=== PATIENT | male | born 1940 | race Caucasian/White ===

== ENCOUNTER 2017-04-08 04:27 | Inpatient (IN) | payer MEDICARE, OTHER ==
[~2017-04-08] VITALS: Ht 180.3 cm; Wt 104.3 kg
[~2017-04-08 04:27] MED LIST: ATENOLOL25 MG PO; ATROVENT HFA12.9 GM INH; BENTYL10 MG PO; CITALOPRAM HBR20 MG PO; IMDUR30 MG PO; LIPITOR20 MG PO; LISINOPRIL40 MG PO; NIACIN500 M1 PO; NORVASC5 MG PO; OMEPRAZOLE20 MG PO; QNASL8.7 GM NS; TRAZODONE HCL100 MG PO; ZOFRAN ODT4 MG SL; ZOLPIDEM TARTRA10 MG PO
--- NOTE | 2017-04-08 08:20 | NUR ---
PT HERE FROM ED, ALERT AND ORIENTED X4, ABLE TO TRASFER SELF TO BED. PT DENIES PAIN, NAUSEA, AND SOB AT THIS TIME. PT ON 5L VIA OXYMASK.
--- NOTE | 2017-04-08 08:42 | NUR ---
IV SITE INTACT, PT DENIES PAIN WITH FLUSH, FLUSHES EASILY, NO SWELLING OR REDNESS NOTED.
--- NOTE | 2017-04-08 09:00 | NUR ---
PT SITTING UP AT SIDE OF THE BED EATING BREAKFAST. PT ALERT AND ORIENTED X4, DENIES PAIN, NAUSEA, AND SOB. PT WEARING 4L O2 VIA NASAL CANULA WHILE EATING, MAINTAINING SATS ABOVE 90%.
--- NOTE | 2017-04-08 10:12 | NUR ---
PT RESTING IN BED WITH EYES CLOSED, TV IS ON, CALL LIGHT WITHIN REACH. VITALS WNL AT THIS TIME.
--- NOTE | 2017-04-08 12:37 | NUR ---
IV SITE INTACT, FLUIDS INFUSING EASILY, PT DENIES PAIN AT SITE. PT STATES "I JUST DON'T FEEL GOOD". PT DENIES NAUSEA, PAIN, AND SOB. ABLE TO EAT 100% OF HIS LUNCH.
--- NOTE | 2017-04-08 12:42 | NUR ---
PT PLACED ON BIPAP. PT DENIES PAIN AT THIS TIME, HOWEVER STATES "I JUST DON'T FEEL GOOD". PT DENIES NAUSEA AND SOB AT THIS TIME.
--- NOTE | 2017-04-08 13:01 | NUR ---
CALLED TO DISCUSS PT LOW BP, LOW URINE OUTPUT, AND PT REPORTING "I JUST DON'T FEEL GOOD". 1L NS BOLUS ORDERED OVER 1 HOUR, CHANGE TO MAINTENENCE FLUID RATE TO 150 ML/HR. RESP THERAPY ALSO TALKING WITH TO DISCUSS BIPAP SUPPORT.
--- NOTE | 2017-04-08 13:04 | NUR ---
TALKED TO THE DOCTOR REGARDING DECREASING THE PRESSURE FROMN 16/8 TO TARGET LOWER TIDAL VOLUMES LONG VITALS REMAIN STABLE , DECREASED PRESSURE TO 15/8 AND TIDAL VOLUME 790
--- NOTE | 2017-04-08 13:30 | NUR ---
20 G IV STARTED IN RT HAND BY GT GRACE. PT ZULEYKA WELL.
--- NOTE | 2017-04-08 14:00 | NUR ---
ABX INFUSING INTO 20G IV IN RT HAND, NS BOLUS ALMOST FINISHED IN IV SITE IN LEFT AC, PT REPORTS NO PAIN AT EITHER SITE.
[2017-04-08] MEDS ORDERED: POTASSIUM CHLO10 ME1 PO (14:11)
--- NOTE | 2017-04-08 15:40 | NUR ---
JODY FROM PHARMACY IN DISCUSSING MEDICATIONS WITH PT AT THIS TIME.
--- NOTE | 2017-04-08 15:52 | HP ---
[facility] [address] [place], [place] [address] Signed DATE OF ADMISSION: 04/08/17 REFERRING PHYSICIAN: Dr. Tammy Aldridge, Emergency Room. PRIMARY CARE PHYSICIAN: Tara Rose, DO IDENTIFICATION The patient is a 76-year-old male with a history of COPD, who was been admitted from the emergency room. History is obtained from the patient. REASON FOR ADMISSION: Acute necrotizing pneumonia with hypoxemia. HISTORY OF PRESENT ILLNESS The patient is a 76-year-old male with a history of COPD, who was in his baseline state of health until yesterday when he began feeling more tired than normal. He continued to do work, but felt like he did not have any energy. There was no fever or chills at that time. At around 3 a.m., this morning, he woke up feeling terrible with fever, chills , and dyspnea. He treated himself with albuterol and other bronchodilators with some relief. However, he noted that his oxygen saturation at that time were ranging between 50% and 60%. He also was noted to have some hemoptysis at that time. Because he was feeling so poorly, he was brought to the emergency room. He is normally on home oxygen 2.5 to 3 L per day. He states that he has had no recent travel. There have been no known ill contacts. He has had no exposure to tuberculosis in the past. They have 2 dogs and 1 cat in the home. In the emergency room, the patient appeared moderately ill, dyspneic with oxygen saturations initially 40 to 50%. He was treated with bronchodilators, IV Solu-Medrol, IV Ceftriaxone and placed on BiPAP with some improvement in his respiratory status. His chest x-ray demonstrated extensive right pneumonia. Because of acute onset of his symptoms and the fact that he has hemoptysis, he was sent for a CT pulmonary angiogram. There is no evidence of pulmonary emboli, but the patient did have extensive right necrotizing pneumonia. Therefore, he was referred for admission. It should be noted the patient had a prior admission for similar symptoms to [facility] in August of 2015. He was admitted for 5 days there with a right-sided pneumonia, which looks very similar to his chest x-ray this time. There is no intervening x-rays to note this ever cleared. PAST MEDICAL HISTORY Significant for: Essential hypertension, controlled with atenolol, lisinopril, and amlodipine. Electronically Signed By: LUIS LEAL MD 04/08/17 1552 PATIENT NAME: MARI MARIE HISTORY AND PHYSICAL DATE OF : 44 PHYSICIAN: LUIS LEAL MD REPORT #: [id number] REPORT IS CONFIDENTIAL AND NOT TO BE RELEASED WITHOUT AUTHORIZATION [address] [address] Signed Chronic obstructive pulmonary disease, on beclomethasone and Atrovent with p.r.n. albuterol. The patient is followed by ham pumper at [facility], but he does not remember the ham pumper's name. Coronary artery disease, status post four-vessel CABG in 1989. Bilateral carotid artery stenosis, status post carotid endarterectomy in 2005. Pacemaker placement in 2006, presumably from bradycardia or sick sinus syndrome. CURRENT MEDICATIONS Include atenolol 50 mg every day, Niacin 1000 mg q. day, omeprazole 20 mg q. day, atorvastatin 20 mg q. day, Imdur 30 mg q. day, lisinopril 40 mg q. day, amlodipine 10 mg q. day, trazodone 150 mg p.o. q.h.s., Ambien 10 mg p.o. q.h.s . p.r.n., beclomethasone 8.7 gm inhaled b.i.d., Atrovent HFA 12.9 g inhaled q.4h. p.r.n. for wheezing, albuterol nebulizations 2.5 mg inhaled q.4h. p.r.n. for wheezing. ALLERGIES: No known drug allergies. FAMILY HISTORY: Reviewed and is noncontributory. SOCIAL HISTORY The patient is and lives in [facility]. He worked at [employer] and retired from there. 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 He has worked in the [employer] in the past. No other toxic exposures. He did smoke for 35 years, approximately 2 packs per day. He quit approximately 20 years ago. The patient states in the event of a cardiac arrest, he would not want CPR. He would entertain intubation mechanical ventilation for a short period of time if there was a chance for improvement. REVIEW OF SYSTEMS Significant for fever, chills, and dyspnea as mentioned in the HPI. There has been no chest pain, no edema, no orthopnea. He has had some posttussive emesis. There has been no diarrhea. Otherwise, a 14-point review of systems has been reviewed and is negative. PHYSICAL EXAMINATION VITAL SIGNS: Temperature 36.8, pulse 80, respirations 22, blood pressure 137/80, oxygen saturations 93% on a 5 L mask. GENERAL: He is awake, alert, in moderate respiratory distress. He is able to speak in almost full sentences. HEENT: Head is atraumatic. Eyes: Pupils equally round and reactive to light. No scleral icterus. No conjunctival injection. Nose is clear without rhinorrhea. Mouth is somewhat Electronically Signed By: LUIS LEAL MD 04/08/17 1552 PATIENT NAME: MARI MARIE HISTORY AND PHYSICAL DATE OF : 44 PHYSICIAN: LUIS LEAL MD REPORT #: [id number] REPORT IS CONFIDENTIAL AND NOT TO BE RELEASED WITHOUT AUTHORIZATION [facility] [address] [place], [place] [address] Signed dry without oral lesions. No pharyngeal erythema. NECK: No lymphadenopathy. No carotid bruits. No thyromegaly. No nuchal rigidity. LUNGS: Demonstrated decreased breath sounds throughout. There were wheezes and crackles throughout the right lung field. There is prolonged expiratory phase. HEART: Regular rate and rhythm. No murmur or gallops. No rubs. PMI was not displaced. ABDOMEN: Quiet bowel sounds, soft, somewhat obese, protuberant without masses or organomegaly. There is no tenderness to palpation. GENITOURINARY: Deferred. EXTREMITIES: Extremities were warm distally. Capillary refill time was approximately 2-3 seconds. Pulses are 1-2+/4, equal and symmetric. There is no cyanosis, clubbing or edema. There was mild bilateral calf tenderness with negative Andre sign. NEUROLOGIC: The patient is awake, alert, and oriented x3. Followed commands. Strength is 5+/5, equal and symmetric. There are no focal deficits. DIAGNOSTIC DATA CBC: White blood cell count was 16.4, hemoglobin 16.8, hematocrit 50, platelets 201,000. Differential, segs 81, lymphs 16, monos 2. Electrolytes: Sodium 138, potassium 3.9, chloride 100, CO2 29, BUN 27, creatinine 1.73. Random glucose 153. Baseline creatinine is unknown. Troponin was less than 0.01. Calcium 9.5. ALT 17, AST 20, alkaline phosphatase 80. Total bilirubin 0.5 . Protein 6.9, albumin 4.3. D-dimer was 1830. Arterial blood gas showed a pH of 7.43, pCO2 of 65, paO2 of 37, bicarbonate of 24 on 40% oxygen. Chest x-ray demonstrated diffuse hazy opacity in the right lung. ACT pulmonary angiogram showed no evidence of p ulmonary embolus. There was extensive destruction of the upper lobes of the lungs bilaterally consistent with COPD. There is diffuse hazy opacity in the right lung with a coarse reticular pattern consistent with pneumonia or atelectasis. IMPRESSION This is a 76-year-old male with, Chronic obstructive pulmonary disease, who has acute Community-acquired necrotizing pneumonia. The patient had abrupt onset of fever and shaking chills with hemoptysis consistent with necrotizing pneumonia. Since he has had a recent pneumonia without obvious improvement in the right lung, he is certainly at risk for unusual organisms. Therefore, he will be started on cefepime and azithromycin until his sputum culture is finalized. He has significant hypoxemia and will be placed on BiPAP intermittently today. He will be maintained on oxygen as needed, maintain his oxygen saturation at 88-92%. . He will receive chest physiotherapy and work towards early ambulation. There is no evidence of sepsis or systemic inflammatory response syndrome at this time. Chronic obstructive pulmonary disease with acute exacerbation. The patient has baseline severe chronic obstructive pulmonary disease, on 2.5 L of oxygen at home. He currently has increased dyspnea with sputum production. Therefore, he will be placed on routine Electronically Signed By: LUIS LEAL MD 04/08/17 1552 PATIENT NAME: MARI MARIE HISTORY AND PHYSICAL DATE OF : 44 PHYSICIAN: LUIS LEAL MD REPORT #: [id number] REPORT IS CONFIDENTIAL AND NOT TO BE RELEASED WITHOUT AUTHORIZATION [facility] [address] [place], [place] [address] Signed bronchodilators and IV Solu-Medrol 40 mg IV q.8h. He will be placed on BiPAP intermittently as needed for increased respiratory distress and at night. Chronic kidney disease, stage III. The patient will have his medication adjusted for his reduced glomerular filtration rate. He did receive a load of IV contrast for the CTPA, so we will follow his BUN and creatinine closely. He will be placed on IV fluids at 125 mL per hour in order to try to avoid any further kidney injury. Essential hypertension. His blood pressure appears stable at this time. He will be continued on atenolol, lisinopril, and amlodipine for now. History of coronary artery disease. The patient has not suffered myocardial infarction in the past and has not been having a ny recent chest pain. His EKG does not show any acute changes and his troponins were normal. He will be observed closely for any evidence of ongoing angina or cardiac ischemia. Chronic lung disease. The patient had very similar pneumonia in the late 2015. Unfortunately, there is no intervening chest x-ray to show whether this has cleared. The patient should have followup chest x-rays after discharge at this time to make sure the pneumonia clears. If he continues to have abnormal right lung chest x-ray, he should be evaluated by Pulmonology and considered for bronchoscopy. I spent greater than 80 minutes admitting this patient to the Intensive Care Unit exclusive of any procedures. Luis Leal MD MM/Lesliel /[id number] cc: Tara Rose, DO [address] [facility], [place] [address] Electronically Signed By: LUIS LEAL MD 04/08/17 1552 PATIENT NAME: MARI MARIE HISTORY AND PHYSICAL DATE OF : 44 PHYSICIAN: LUIS LEAL MD REPORT #: [id number] REPORT IS CONFIDENTIAL AND NOT TO BE RELEASED WITHOUT AUTHORIZATION
[2017-04-08] MEDS ORDERED: ADULT LOW DOSE81 MG PO (15:54)
[2017-04-08] MEDS ORDERED: PULMICORT0.5 MG/2 M INH (15:54)
[2017-04-08] MEDS ORDERED: FISH OIL 1,0001 EAC3 PO (15:55)
[2017-04-08] MEDS ORDERED: FUROSEMIDE40 MG PO (15:57)
--- NOTE | 2017-04-08 15:58 | NUR ---
MED REC COMPLETE
--- NOTE | 2017-04-08 16:15 | NUR ---
IV SITES INTACT, NO REDNESS OR SWELLING NOTED, PT DENIES PAIN AT INSIRTION SITE OR WITH INFUSION. PT AMBULATED TO TOILET, ABLE TO HAVE A BM AND VOIDED 125 ML INTO THE URINAL. PT THEN AMBULATED BACK TO BED, HAD A NEB TREATMENT, THEN AMBULATED TO THE COUCH. PT VISITING WITH HIS AT THIS TIME, DENIES PAIN, NAUSEA, AND SOB. VITALS WNL, PT ON 4L O2 VIA NASAL CANULA.
--- NOTE | 2017-04-08 19:40 | NUR ---
PT AWAKE IN BED WATCHING TV, REPORT RECEIVED FROM GIULIANO GRACE. PT DENIES NEEDS AT THIS TIME, PLAN OF CARE FOR THE NIGHT DISCUSSED WITH PT. RT IN TO DO NEB.
--- NOTE | 2017-04-08 20:45 | NUR ---
PT WATCHING TV IN BED, ASSESSMENT COMPLETED. LUNGS CLEAR BUT DIM. PT STATES HIS BREATHING IS NOT AT HIS BASELINE AT THIS TIME, WEARING NASAL CANNULA AT 4L.
--- NOTE | 2017-04-08 21:20 | NUR ---
DR FERRER CALLED AND UPDATED REGARDING URINE OUTPUT LOW, NO ORDERS AT THIS TIME, CONTINUE TO MONITOR. PT BLADDER SCAN SHOWED 271 THEN VOIDED 150ML DARK CONCENTRATED URINE.
--- NOTE | 2017-04-08 22:09 | NUR ---
PT GIVEN TYLENOL FOR BACK PAIN. READY TO TRY TO SLEEP NOW, BUT DOES NOT WANT TRAZADONE AND SONATA UNTIL 2244. REQUESTS OXYMASK DUE TO NASAL CANNULA DRYING OUT HIS NOSE.
--- NOTE | 2017-04-08 22:45 | NUR ---
PT WAITING TO SON TO ARRIVE, WANTS TO WAIT ON SLEEP MEDS.
--- NOTE | 2017-04-08 23:00 | NUR ---
STATES THAT HIS BACK PAIN IS GONE AFTER THE TYLENOL.
--- NOTE | 2017-04-08 23:15 | NUR ---
SON IN TO VISIT WITH PT
--- NOTE | 2017-04-09 00:58 | NUR ---
UP TO VOID AND LOOSE BOWEL MOVEMENT, BACK TO BED, NO COMPLAINTS.
--- NOTE | 2017-04-09 03:00 | NUR ---
PT SLEEPING, RESP EVEN AND UNLABORED, OCCASIONAL PRODUCTIVE COUGH WITH SOME BLOOD TINGED SPUTUM.
--- NOTE | 2017-04-09 05:13 | NUR ---
PT SLEEPING, RR 18, HR 61, SPO2 98%
--- NOTE | 2017-04-09 07:15 | NUR ---
PT HAD SOME TROUBLE SLEEPING LAST NIGHT, URINE OUTPUT PICKED UP AND BLOOD PRESSURES WERE A BIT LOW FOR AN HOUR OR SO THEN PICKED UP AND MAINTAINED A MAP OVER 65. HR 60'S TO 70'S, PACED WITH BBB. CONTINUES ON 4L/O2 PER NASAL CANNULA, OCCASIONALLY USES OXYMASK FOR COMFORT. MAINTAINS SPO2 IN MID TO HIGH NINETIES, STATES HIS BREATHING IS A BIT BETTER THIS MORNING BUT NOT YET AT HIS USUAL. HAS COUGHED UP SOME BLOODY SPUTUM LAST NIGHT BUT NONE THE SECOND HALF OF THIS SHIFT. REMAINS ALERT AND ORIENTED AND ACTIVE.
--- NOTE | 2017-04-09 07:50 | NUR ---
PT SITTING UP AT THE SIDE OF THE BED EATING BREAKFAST. PT DENIES PAIN, NAUSEA, AND SOB. IV SITES INTACT, FLUIDS INFUSING EASILY, PT DENIES PAIN AT SITES. PT ALERT AND ORIENTED X4, COOPERATIVE AND POLITE. PT STATES "I FEEL ALOT BETTER THAN YESTERDAY". VITAL SIGNS WNL.
--- NOTE | 2017-04-09 08:35 | NUR ---
TURNED PT O2 DOWN TO 3L, PT SATS MAINTAINING ABOVE 90%
--- NOTE | 2017-04-09 10:07 | NUR ---
PT RESTING IN BED AT THIS TIME WITH THE TV ON. O2 SAT IS 95% ON 3L O2.
--- NOTE | 2017-04-09 11:17 | NUR ---
PT AWAKE AND ALERT X4, PT DENIES PAIN, NAUSEA, AND SOB AT THIS TIME. LAYING IN BED WATCHING TV. PT C/O HICCUPS, GIVEN 1 TSP MUSTARD TO EAT, HICCUPS RESOLVED SHORTLY AFTER PT ATE MUSTARD.
--- NOTE | 2017-04-09 11:44 | NUR ---
PT AMBULATED TO TOILET WITH STAND BY ASSIST FOR MANAGEMENT OF CABLES. PT ABLE TO VOID INTO URINAL AND HAVE BM. PT BACK TO CHAIR, SOME SOB WITH EXERTION, O2 TURNED UP TO 4L FOR 5 MINUTE RECOVERY PERIOD, THEN O2 BACK TO 2.5 L. LINENS CHANGED.
--- NOTE | 2017-04-09 13:15 | EKG ---
[facility] [address] [facility] [place] [address] Signed Normal sinus rhythm with sinus arrhythmia Right bundle branch block T wave abnormality, consider inferior ischemia Abnormal ECG No previous ECGs available Confirmed by PARKER FERRER MD ([id number]) on 04/09/2017 1:15:25 PM Electronically Signed By: PARKER FERRER MD 04/09/17 1315 PATIENT NAME: MARI MARIE Electrocardiogram DATE OF : 44 PHYSICIAN: PARKER FERRER MD REPORT #: [id number] REPORT IS CONFIDENTIAL AND NOT TO BE RELEASED WITHOUT AUTHORIZATION
--- NOTE | 2017-04-09 19:13 | EKG ---
[facility] [address] [facility] [place] [address] Signed Normal sinus rhythm Right bundle branch block T wave abnormality, consider inferior ischemia Abnormal ECG When compared with ECG of 08-APR-2017 04:49, (Unconfirmed) Nonspecific T wave abnormality now evident in Lateral leads QT has lengthened Confirmed by PARKER FERRER MD ([id number]) on 04/09/2017 7:13:18 PM Electronically Signed By: PARKER FERRER MD 04/09/17 1913 PATIENT NAME: MARI MARIE Electrocardiogram DATE OF : 44 PHYSICIAN: PARKER FERRER MD REPORT #: [id number] REPORT IS CONFIDENTIAL AND NOT TO BE RELEASED WITHOUT AUTHORIZATION
--- NOTE | 2017-04-09 20:04 | NUR ---
FAMILY MEMBER VISITING WITH PATIENT UNTIL 1940, PT IS A/O, NO COMPLAINTS OF PAIN, RT ASSESSED PT.
--- NOTE | 2017-04-10 00:25 | NUR ---
PT IS SLEEPING AFTER HS SLEEP MEDICATION, APPEARS COMFORTABLE, USES CALL LIGHT, TELEMETRY, VS WNL.
--- NOTE | 2017-04-10 00:59 | NUR ---
PT APPEARED TO BE SLEEPING FOR 1.5 HRS, OCCASIONAL COUGH. BP WNL, PT VERBALIZED HE HASN'T SLEPT AT ALL. PT RECEIVED TRAZADONE AND SONATA HS, TAKES AMBIEN AT HOME. PT DOES NOT WANT THE PHYSICIAN CONTACTED FOR AN ORDER FOR HIS USUAL MEDICATION AT THIS TIME. VOIDED 300 ML MARLEN/CLEAR URINE HS, NS AT 125 ML/HR CONTINUOUS INFUSION. LUNGS COARSE UPPER LOBES, DIMINISHED BASES. CONGESTED. SPUTUM SENT TO THE LAB. PT COUGHED APPROXIMATELY 2 MUCOUS DARK RED STAINED 3 ML EACH SPUTUM, PRODUCTIVE. UNREMARKABLE, AFEBRILE.
--- NOTE | 2017-04-10 02:01 | NUR ---
PT IS RESTING COMFORTABLY, ATRIAL PACED HR 64. URINAL AT BEDSIDE, CONSOLIDATING INTERVENTIONS.
--- NOTE | 2017-04-10 04:05 | NUR ---
PT SLEPT FROM APPROXIMATELY 0115 TO 0330.
--- NOTE | 2017-04-10 05:32 | NUR ---
ASA AND LOVENOX VTE PROPHYLAXIS.
--- NOTE | 2017-04-10 06:52 | NUR ---
LOZENGE FOR THROAT DRYNESS, ICE WATER PROVIDED, PT ORDERED BREAKFAST BY TELEPHONE, AWAKE, DID NOT SLEEP MUCH, IN RECLINER.
--- NOTE | 2017-04-10 08:35 | NUR ---
IV SITES INTACT, NO REDNESS OR SWELLING NOTED, PT DENIES PAIN AT EITHER SITE, FLUIDS AND FLUSHES INFUSE EASILY. PT ALERT AND ORIENTED X4 SITTING UP IN THE CHAIR. PT DENIES PAIN AND NAUSEA. PT ATE 100% OF HIS BREAKFAST. PT REPORTS "I DIDN'T SLEEP LAST NIGHT". PT COOPERATIVE AND APPRORIATE. PT REPORTS SOB WITH ACTIVITY "I'M SUPRISED AT HOW OUT OF BREATH I AM JUST FROM PUTTING MY SOCKS ON". PT DENIES SOB WHILE SITTING OR LAYING DOWN.
--- NOTE | 2017-04-10 10:16 | NUR ---
PT RECLINING IN CHAIR WITH EYES CLOSED, TV IS ON. CALL LIGHT WITHIN REACH. PT APPEARS COMFORTABLE, RESP EVEN AND UNLABORED.
--- NOTE | 2017-04-10 11:46 | NUR ---
PT SITTING UP IN CHAIR, ALERT AND ORIENTED X4, ORDERING LUNCH INDEPENDENTLY. PT HAS HAD A PRODUCTIVE COUGH AND BEEN ABLE TO EXPECTORATE SMALL AMOUNTS OF SPUTUM, OCCASIONALLY RED/BROWN COLOR, OTHERWISE CLEAR. PT DENIES PAIN, NAUSEA, AND SOB AT THIS TIME.
--- NOTE | 2017-04-10 12:55 | NUR ---
IV SITES INTACT, NO REDNESS OR SWELLING NOTED, FLUSHE EASILY, PT DENIES PAIN AT EITHER SITE. PT SITTING UP IN CHAIR, ALERT AND ORIENTED X4. PT DENIES PAIN, NAUSEA AND SOB. CALL LIGHT WITHIN REACH. SPOUSE AT BEDSIDE. PT HAS LUNCH TRAY.
--- NOTE | 2017-04-10 13:30 | NUR ---
FULL REPORT GIVEN TO ROLAN GRACE, PT TO TRANSFER TO ROOM 114. PT IS AWARE OF THE PLAN TO MOVE.
--- NOTE | 2017-04-10 15:15 | NUR ---
PT MOVED TO ROOM 114, ALL PERSONAL BELONGINGS MOVED WITH PT INCLUDING HIS HOME 02 TANK.
--- NOTE | 2017-04-10 15:37 | NUR ---
PT MOVED TO THE FLOOR VIA LESLY NOBLES AND LESLY GONGORA. ALL PT BELONGINGS WERE MOVED WITH PT. PT'S TOWER MEDS PLACED IN MED/SURG PYXIS. LAB CALLED, NEEDS A SPUTUM SAMPLE. PT ADVISED AND SIGN PLACED IN ROOM. PT ASSESSMENT COMPLETED.
--- NOTE | 2017-04-10 18:07 | NUR ---
PT MOVED TO MED/SURG THIS SHIFT. PT ON 2-4L O2 CHRONICLY. IV CEPHAPIME AND PO ZYTHROMYCIN. IV ACCESS X2, RIGHT HAND AND LEFT AC, SALINE LOCK EXCEPT ANTIBIOTICS. PO STEROIDS. URINE OUTPUT QS. A & 0 X4. HAS OWN AMBIEN IN PYXIS. REPORTS SOB WITH ACTIVITY. HAS PACER. SBA/INDEPENDENT IN ROOM. UPPER AND LOWER DENTURES.
--- NOTE | 2017-04-10 20:12 | NUR ---
PT ASSESSMENT COMPLETE. PT SITTING IN CHAIR IN ROOM WATCHING TV, IN GOOD SPIRITS THIS EVENING. PT ALERT AND ORIENTED. PT ON 3 LPM O2 VIA NASAL CANNULA, DENIES ANY SOB AT THIS TIME. IV ABX INITIATED, INFUSING WITHOUT DIFFICULTY. PT ON TELEMETRY, SINUS RHYTHM, HR 85. CALL LIGHT WITHIN REACH. PT DENIES ANY FURTHER NEEDS AT THIS TIME.
--- NOTE | 2017-04-10 22:40 | NUR ---
PT READY FOR BED, TRAZADONE AND AMBIEN GIVEN PER PT REQUEST. IV ABX INFUSING WITHOUT DIFFICULTY. CALL LIGHT WITHIN REACH. PT DENIES ANY FURTHER NEEDS AT THIS TIME.
--- NOTE | 2017-04-10 23:55 | NUR ---
PT SLEEPING, RR EVEN AND UNLABORED. PT APPEARS COMFORTABLE AT THIS TIME. IV ABX INFUSING WITHOUT DIFFICULTY. PT ON TELEMETRY, SINUS RHYTHM, PACED, HR 70. PT ON 3 LPM O2 VIA NASAL CANNULA. CALL LIGHT WITHIN REACH.
--- NOTE | 2017-04-11 04:29 | NUR ---
PT SLEEPING, RR EVEN AND UNLABORED. PT APPEARS COMFORTABLE AT THIS TIME. IV ABX INFUSING WITHOUT DIFFICULTY. PT ON TELEMETRY, SINUS RHYTHM, PACED, HR 66. PT ON 3 LPM O2 VIA NASAL CANNULA. CALL LIGHT WITHIN REACH.
--- NOTE | 2017-04-11 09:00 | NUR ---
PT UP TO RECLINER THIS MORNING. ATE 100% OF BREAKFAST. TOOK AM PILLS WELL. NO COMPLAINTS AT THIS TIME. 3L O2 VIA NC IN PLACE.
--- NOTE | 2017-04-11 14:53 | NUR ---
PT SITTING IN CHAIR-WATCHING TV. HE IS ALERT, ORIENTED AND SUPPORTED BY HIS EWELINA. HE SAID HE WILL HAVE TO SLOW DOWN, HE IS LEARNING HIS LESSONS. HE SEEMS TO ENJOY HELPING OTHERS, BUT JUST NOT ENOUGH TO CONTRIBUTE TO HIS ILL HEALTH. GOOD VISIT, LOTS IN COMMON WITH EACH OTHER. HE FEELS MUCH MORE AT EASE STAYING ONE MORE NIGHT. EXTENDED A BLESSING, WILL FOLLOW NEEDED
--- NOTE | 2017-04-11 17:57 | NUR ---
3L 02 VIA OH CHRONIC. INDEPENDENT AMBULATION. SHOWERS BID. AMBIEN IN KITS LIST. LEVAQUIN PO TO START AT 0600. CARDIAC DIET.
--- NOTE | 2017-04-11 21:48 | NUR ---
PT JUST FINISHED WITH SHOWER. PT ASSESSMENT COMPLETE. PT DENIES ANY PAIN. PT STATES BREATHING "MUCH BETTER TODAY", DENIES ANY SOB AT THIS TIME. PT ON 3 LPM O2 VIA NASAL CANNULA. PT ON TELEMETRY, SINUS RHYTHM, HR 66. HS MEDS GIVEN, PT REQUESTING TO RECEIVE TRAZADONE AND AMBIEN WHEN HE IS READY FOR BED VS SCHEDULED TIME. IV SALINE LOCKED, PATENT AND INTACT. CALL LIGHT WITHIN REACH. PT DENIES ANY FURTHER NEEDS AT THIS TIME.
--- NOTE | 2017-04-12 00:05 | NUR ---
PT SLEEPING, RR EVEN AND UNLABORED. PT APPEARS COMFORTABLE AT THIS TIME. PT ON TELEMETRY, SINUS RHYTHM, PACED, HR 75. PT ON 3 LPM O2 VIA NASAL CANNULA. CALL LIGHT WITHIN REACH.
--- NOTE | 2017-04-12 02:45 | NUR ---
PT AWAKE SITTING IN CHAIR WATCHING TV. PT IN GOOD SPIRITS THIS AM, STATES HE SLEPT WELL. PT ON 3 LPM O2, DENIES ANY SOB AT THIS TIME. COFFEE GIVEN PER PT REQUEST. PT AMBULATING IN ROOM INDEPENDENTLY, STEADY ON FEET. CALL LIGHT WITHIN REACH. PT DENIES ANY FURTHER NEEDS AT THIS TIME.
--- NOTE | 2017-04-12 05:04 | NUR ---
PT HAD A GOOD NIGHT. SLEPT WELL. PT ON 3 LPM O2 VIA NASAL CANNULA-CHRONIC. PT STARTED ON PO ABX THIS AM. PT AMBULATES INDEPENDENTLY. PT SHOWERED THIS SHIFT. PLAN IS FOR PT TO POSSIBLY DC HOME TODAY.
--- NOTE | 2017-04-12 07:23 | NUR ---
REPORT RECEIVED FROM PIEDAD GRACE. PT UP EARLY THIS MORNING ANXIOUS TO GO HOME. EDUCATED BY ART THERAPY SPECIALIST RN THAT HE MAY NOT GO HOME UNTIL 1400. PT UNDERSTOOD EDUCATION. TELE [address] HR 68.
--- NOTE | 2017-04-12 08:18 | NUR ---
PT O2 SATS 85-88% DURING BREATHING TREATMENT. RESPIRATORY THERAPY GIVING EDUCATION ON O2 TANK OPTIONS.
[2017-04-12] MEDS ORDERED: LEVOFLOXACIN500 MG PO (10:12)
--- NOTE | 2017-04-12 10:12 | NUR ---
PT IS SITTING UP IN CHAIR CALL LIGHT IN REACH. PT DID NOT WANT TO SHOWER B/C HE IS BEING DISCHARGED TO HOME. PT DID NOT NEED ANYTHING ELSE AT THE MOMENT
[2017-04-12] MEDS ORDERED: PREDNISONE20 MG PO (10:43)
--- NOTE | 2017-04-14 17:14 | EKG ---
[facility] [address] [facility] [place] [address] Signed Normal sinus rhythm Right bundle branch block Left posterior fascicular block Bifascicular block T wave abnormality, consider inferior ischemia Abnormal ECG When compared with ECG of 09-APR-2017 08:00, Nonspecific T wave abnormality no longer evident in Lateral leads Confirmed by MARIA ANTONIA RYAN MD ([id number]) on 04/14/2017 5:13:53 PM Electronically Signed By: MARIA ANTONIA RYAN MD 04/14/17 1714 PATIENT NAME: MARI MARIE Electrocardiogram DATE OF : 44 PHYSICIAN: MARIA ANTONIA RYAN MD REPORT #: [id number] REPORT IS CONFIDENTIAL AND NOT TO BE RELEASED WITHOUT AUTHORIZATION
== END 2017-04-12 11:15 | disposition home or self-care (01) | DRG 190 ==
LOC: ED 04:27 → MS 07:52 → CCU 07:52 → MS 04-10 15:26
PROVIDERS: ADMIT Pediatrics Pediatric Critical Care Medicine
PROC: 5A09357 Assistance with Respiratory Ventilation, Less than 24 Consecutive Hours, Continuous Positive Airway Pressure (ICD-10-PCS; principal; 2017-04-08)
DX: J44.1 Chronic obstructive pulmonary disease with (acute) exacerbation (principal); J85.0 Gangrene and necrosis of lung; J44.0 Chronic obstructive pulmonary disease with (acute) lower respiratory infection; I12.9 Hypertensive chronic kidney disease with stage 1 through stage 4 chronic kidney disease, or unspecified chronic kidney disease; N18.3 Chronic kidney disease, stage 3 (moderate); I25.10 Atherosclerotic heart disease of native coronary artery without angina pectoris; Z95.0 Presence of cardiac pacemaker; Z87.891 Personal history of nicotine dependence; R09.02 Hypoxemia
CPT/HCPCS: 36415; 36600; 71010; 71020; 71260; 80048; 80053; 82803; 83605; 83735; 83880; 84484; 85025; 85379; 87040; 87070; 87106; 87147; 87205; 93005; 93010; 94640; 94644; 94660; 94668; 94760; J0456; J0692; J0696; J1650; J2920; J2930; J3480; J7030; J7120; J7512; Q9967

== ENCOUNTER 2017-05-11 05:48 | Emergency (ER) | payer MEDICARE, OTHER ==
[~2017-05-11] VITALS: Ht 180.3 cm; Wt 104.3 kg
[~2017-05-11 05:48] MED LIST changes: +ADULT LOW DOSE81 MG PO; +FISH OIL 1,0001 EAC3 PO; +FUROSEMIDE40 MG PO; +LEVOFLOXACIN500 MG PO; +POTASSIUM CHLO10 ME1 PO; +PREDNISONE20 MG PO; +PULMICORT0.5 MG/2 M INH
--- NOTE | 2017-05-11 07:15 | EKG ---
[facility] [address] [facility] [place] [address] Signed Suspect arm lead reversal, interpretation assumes no reversal Sinus tachycardia Right bundle branch block T wave abnormality, consider inferior ischemia Abnormal ECG When compared with ECG of 12-APR-2017 10:40, Vent. rate has increased BY 36 BPM T wave inversion more evident in Inferior leads T wave inversion now evident in Anterior leads Confirmed by PARKER FERRER MD ([id number]) on 05/11/2017 7:15:26 AM Electronically Signed By: PARKER FERRER MD 05/11/17 0715 PATIENT NAME: MARI MARIE Electrocardiogram DATE OF : 44 PHYSICIAN: PARKER FERRER MD REPORT #: [id number] REPORT IS CONFIDENTIAL AND NOT TO BE RELEASED WITHOUT AUTHORIZATION
== END 2017-05-11 08:45 | disposition short-term general hospital (02) ==
LOC: ED 05:48
DX: J44.0 Chronic obstructive pulmonary disease with (acute) lower respiratory infection (principal); J18.9 Pneumonia, unspecified organism; I10 Essential (primary) hypertension; K21.9 Gastro-esophageal reflux disease without esophagitis; I51.9 Heart disease, unspecified; Z87.891 Personal history of nicotine dependence; Z95.0 Presence of cardiac pacemaker; Z95.5 Presence of coronary angioplasty implant and graft; Z79.899 Other long term (current) drug therapy; Z79.52 Long term (current) use of systemic steroids; Z79.82 Long term (current) use of aspirin
CPT/HCPCS: 71010; 80053; 82803; 83605; 83880; 84484; 85025; 87040; 93005; 93010; 94640; 94660; 96374; 96375; 99291; J1956; J2270

== ENCOUNTER 2017-11-01 05:44 | Inpatient (IN) | payer MEDICARE, OTHER ==
[~2017-11-01] VITALS: Ht 180.3 cm; Wt 176.3 kg
[~2017-11-01 05:44] MED LIST changes: -IMDUR30 MG PO; +ISOSORBIDE MONO30 MG PO
[2017-11-01] MEDS ORDERED: WARFARIN SODIUM5 MG PO (06:12)
--- NOTE | 2017-11-01 10:00 | NUR ---
PATIENT ARRIVED TO MED SURG. PATIENT IS ON BASELINE 2L OF O2. MAG RIDER INFUSING.
--- NOTE | 2017-11-01 10:54 | NUR ---
PT TRANFERED TO MED/SURG FROM ER. ASSESSMENT DONE. VITALS TAKEN. PT RESPONDING APPROPRIATLY TO QUESTIONS. PT DENIES PAIN. MEDICATIONS GIVEN ORDERED. PT RESTING IN BED. 2L O2 RUNNING PER BASELINE. PT STATES NO REQUESTS OR COMPLAINTS AT THIS TIME. BED RAILS UP. CALL LIGHT WITHIN REACH.
[2017-11-01] MEDS ORDERED: MAG-OXIDE400 MG PO (11:18)
[2017-11-01] MEDS ORDERED: METOPROLOL SUC100 MG PO (11:20)
--- NOTE | 2017-11-01 11:25 | NUR ---
MED REC COMPLETE WITH [facility] MED LIST AND PATIENT INTERVIEW. PATIENT DOES NOT WANT TO CONTINUE HAVING BLOOD DRAWS FOR WARFARIN AND HAS BEEN REFUSING THEM.
--- NOTE | 2017-11-01 13:00 | NUR ---
PT RESTING IN BED EYES CLOSED RR EVEN 18 BPM NO DISTRESS NOTED. PT BODY POSITION RELAXED. PT APPEARS TO BE SLEEPING.
--- NOTE | 2017-11-01 13:22 | EKG ---
[facility] [address] [facility] [place] [address] Signed Sinus rhythm with sinus arrhythmia with frequent ventricular-paced complexes Right bundle branch block T wave abnormality, consider inferior ischemia Abnormal ECG When compared with ECG of 11-MAY-2017 06:15, Electronic ventricular pacemaker has replaced Sinus rhythm Confirmed by MARIA ANTONIA RYAN MD ([id number]) on 11/01/2017 1:22:41 PM Electronically Signed By: MARIA ANTONIA RYAN MD 11/01/17 1322 PATIENT NAME: MARI MARIE Electrocardiogram DATE OF : 44 PHYSICIAN: MARIA ANTONIA RYAN MD REPORT #: [id number] REPORT IS CONFIDENTIAL AND NOT TO BE RELEASED WITHOUT AUTHORIZATION
--- NOTE | 2017-11-01 14:15 | NUR ---
PATIENT RESTING IN BED READING NEWS PAPER. VISITOR IN ROOM. PATIENT'S Sp02 AT 88-89% AT 2L NC. PATIENT STATES THAT HE USES 2.5 LITERS OF OXYGEN AT HOME. THIS MULTIMEDIA JOURNALIST BUMPS THE PATIENTS OXYGEN TO 2.5 PATIENT'S Sp02 UP TO 92% NC. PATIENT STATES THAT HE DOES NOT HAVE TO PEE AT THIS TIME BUT WILL TRY SOON. CALL BUTTON IN REACH. FRESH ICE WATER GIVEN. NO OTHER NEEDS AT THIS TIME. RN NOTIFIED.
--- NOTE | 2017-11-01 14:19 | NUR ---
PT ASLEEP, HIS SITTING QUIETLY IN RM. VISITED WITH HER, SHE MENTIONED THAT HE NEVER SLEEPS VERY GOOD. SHE IS PLANNING ON SLIPPING HM TO TAKE A NAP HERSELF. WILL FOLLOW NEEDED
--- NOTE | 2017-11-01 15:30 | NUR ---
AFTERNOON ASSESSMENT DUE. PT RESTING IN BED WATCHING TV. PT DENIES PAIN. PT COUGHING OCCATIONALLY. O2 2.5L NC RUNNING. ASSESSMENT DONE. MEDICATION GIVEN (SEE MAR). BED RAILS UP. CALL LIGHT WITHIN REACH. PT STATES NO REQUESTS OR COMPLAINTS AT THIS TIME.
--- NOTE | 2017-11-01 16:39 | NUR ---
REPORTED TO , PT HAS CONCERNS ABOUT SLEEPING TONIGHT IF HE DOES NOT HAVE HIS USUAL NIGHT MEDICATIONS, TRAZADONE AND AMBIEN. SAID HE WOULD RESUME HIS HS MEDICATIONS.
--- NOTE | 2017-11-01 17:41 | NUR ---
MEDICATION DUE. PT WATCHING TV AND FINISHED WITH DINNER. PT STATES "THAT DINNER WAS SO SMALL. I'M STILL HUNGRY." 2ND DINNER ORDER CALLED TO DIETARY. WATER REFILLED. MEDICATION GIVEN ORDERED (SEE MAR). PT CONTINUES WATCHING TV. WITH NO ADDITIONAL REQUESTS OR COMPLAINTS AT THIS TIME. CALL LIGHT WITHIN REACH. BED RAILS UP.
--- NOTE | 2017-11-01 18:03 | NUR ---
PT ADMITED TODAY FOR PNEUMONIA. STAND BY ASSIST. CARDIAC DIET. MAG RIDER GIVEN TODAY FOR MG+=1.5. IV ABX PLANNED FOR TOMORROW. PT ON 2.5L O2 PER HOME O2 USE. FEBRILE IN ED. NO FEVER TODAY ON MED/SURG. USING CALL LIGHT APPROPRITALY.
--- NOTE | 2017-11-01 18:23 | NUR ---
PATIENT RESTING IN BED LAYING ON HIS SIDE WITH HIS EYES CLOSED. PATIENT ASKED THIS ENGINEER SPECIALIST IF HE CAN GET UP ON HIS OWN TO GO TO THE BATHROOM. THIS ENGINEER SPECIALIST LET PATIENT KNOW THAT HE NEEDS TO CALL WHEN HE WANTS TO GET UP. THIS ENGINEER SPECIALIST ASKED THE PATIENT IF HE NEEDS TO USE THE BATHROOM NOW. PATIENT SAID NO. WARM BLANKET GIVEN TO PATIENT. BED ALARM ON. NO OTHER NEEDS AT THIS TIME.
--- NOTE | 2017-11-01 18:40 | NUR ---
THIS RN NOTED THAT PT HAS HAD ONLY 300ML OF URINE OUTPUT TODAY. MD CONTACTED. STATES TO BLADDER SCAN PT AND THEN DO A SET OF ORTHOSTATIC VITAL SIGNS. ORDERS ENTERED.
--- NOTE | 2017-11-01 18:52 | NUR ---
BLADDER SCAN AND ORTHOSTATIC VITAL SIGNS TAKEN PER MD ORDER. BLADDER SCAN FINDS 199ML. MD NOTIFIED. PT VISITING WITH FAMILY AT BEDSIDE. 2L O2 NC ON. PT DENIES DIZZINESS OR LIGHTHEADEDNESS.
--- NOTE | 2017-11-01 19:04 | NUR ---
MD ORDERS FLUID BOLUS TO BE FOLLOWED BY MAINTENCE FLUIDS AT 75ML/HR. FLUID BOLUS STARTED WITH MAINTENCE FLUIDS TO FOLLOW. PT VISITING WITH FAMILY. NO REQUESTS OR COMPLAINTS AT THIS TIME. CALL LIGHT WITHIN REACH.
--- NOTE | 2017-11-01 19:25 | NUR ---
IN ROOM FOR REPORT, PT IS AWAKE SITTING AT EDGE OF BED VISITING WITH FAMILY IN ROOM. PT DENIES NEEDS AT THIS TIME. CALL LIGHT IS WITHIN REACH.
--- NOTE | 2017-11-01 21:17 | NUR ---
PT IS AWAKE IN BED WITH VISIOR IN ROOM, PT IS REQUESTING TAKING AMBIEN AROUND 11PM. HE VOIDED [address] RYAN IS AWARE. HE SAID TO CONTINUE IV FLUIDS TONIGHT.
--- NOTE | 2017-11-01 23:07 | NUR ---
PT WAS READY FOR AMBIEN, NEW WATER AT BEDSIDE AND PT IS READY FOR BED, CALL LIGHT IS WITHIN REACH.
--- NOTE | 2017-11-02 00:09 | NUR ---
HELPED PT SIT AT EDGE OF BED TO USE URINAL. PT DENIES FURTHER NEEDS.
--- NOTE | 2017-11-02 06:03 | NUR ---
[facility], SEE PAPER CHART FOR RECORDS.
--- NOTE | 2017-11-02 08:20 | NUR ---
PATIENT SITTING AT BEDSIDE FINISHING BREAKFAST. HANDS AND FACE WASHED. PATIENT WOULD LIKE TO SHOWER. CALL BUTTON IN REACH NO OTHER NEEDS AT THIS TIME.
--- NOTE | 2017-11-02 08:55 | NUR ---
PATIENT REQUESTED TO TAKE A SHOWER BUT FELL ASLEEP IN BED SO WHEN PATIENT WAKES WILL SHOWER HIM, IV ABX HUNG AND RUNNING. PO MEDICATION GIVEN AND ASSESSMENT DONE. PATIENT IS ON OXYGEN AT 2.5 L PER NC WHICH IS CHRONIC FOR HIM.
--- NOTE | 2017-11-02 10:19 | NUR ---
PATIENT RESTING IN BED. TECHNICIAN ASSISTANT IN ROOM TO VISIT. CALL BUTTON IN REACH. NO OTHER NEEDS AT THIS TIME.
--- NOTE | 2017-11-02 10:20 | NUR ---
PATIENT RESTING ON HIS RIGHT SIDE RESPIRATIONS EVEN UNLABORED.
--- NOTE | 2017-11-02 11:21 | NUR ---
PT UP IN BATHROOM. PT SHOWERING AND SHAVING HIMSELF. BED LINEN CHANGED.
--- NOTE | 2017-11-02 13:28 | NUR ---
PT ALERT, ORIENTED AND HAS COME TO THE REALIZATION THAT HE NO LONGER CAN BURN OFF THE WEEDS ON HIS PLACE. EVERYTIME HE DOES HE ENDS UP AT [facility]. A PART OF HIS LIFE HE MUST LET GO OF. GOOD CONVERSATION, EXTENDED A BLESSING AND PT INVITED ME BACK. WILL FOLLOW NEEDED
--- NOTE | 2017-11-02 13:39 | NUR ---
PATIENT UP AND AMBULATING WITH HIS IN THE HALLWAY. HE IS USING HIS PORTABLE CONCENTRATOR FROM HOME AND WALKING INDEPENDENTLY. HE IS STEADY ON HIS FEET AND DENIES ANY PAIN OR NEEDS AT THIS TIME.
--- NOTE | 2017-11-02 15:13 | NUR ---
CALLED TO REPORT THAT PT FELT THE HS MEDICATION TRAZADONE AND AMBIEN THAT WAS DISPENSED LAST HS WAS NOT EFFECTIVE HIS HOME MEDICATION. GAVE OK FOR HOME MEDICATIONS TO BE DISPENSED AT HIS NORMAL HOME DOSE.
--- NOTE | 2017-11-02 15:46 | NUR ---
PATIENT RESTING ON HIS RIGHT SIDE, HOME MEDICATIONS GIVEN TO CATRINA IN PHARMACY TO BE VERIFIED.
--- NOTE | 2017-11-02 17:32 | NUR ---
PATIENT REMAINS ON OXYGEN AT 2.5L PER NC WHICH IS HIS HOME DOSE. HE IS TAKING ALL HIS HOME MEDICATIONS AND TOLERATED AMBULATING IN THE HALLWAY TODAY WITH HIS HOME CONCENTRATOR. PATIENT IS STEADY ON HIS FEET WITHOUT ANY ASSISTANCE. HE IS SALINE LOCKED AND HAS SLEPT MOST OF THE DAY TODAY. PATIENT IS ALERT AND ORIENTED.
--- NOTE | 2017-11-02 18:15 | NUR ---
PATIENT RESTING IN BED WATCHING TV. FRESH ICE WATER GIVEN. NO OTHER NEEDS AT THIS TIME.
--- NOTE | 2017-11-02 20:24 | NUR ---
O2 3L N/C in place, no sob stated, watching tv. Coop with assessment. L pacer in place, Irregular hear rate. 1+ edema left foot up to mid calf, and i+ r up to ankles, non pitting, leg elevated, 2 iv s/s in place, coop,
--- NOTE | 2017-11-02 21:00 | NUR ---
trazadone 200mg and ambien 10mg po given per insomnia
--- NOTE | 2017-11-02 21:33 | NUR ---
ROUNDED CHARGE. VITALS TAKEN AND RECORDED. PATIENT IS RESTING IN BED WATCHING TV. PATIENT HAS COMPANY IN THE ROOM. PATIENT DENIES ANY NEEDS CALL LIGHT IN REACH.
[2017-11-02] MEDS ORDERED: CEFPODOXIME PR200 MG PO (22:08)
--- NOTE | 2017-11-03 02:25 | NUR ---
eyes closed, has slept only 1 1/2 hr. CUrrenlty resting, eyes closed, no resp distress, O2 in place 3L NC
--- NOTE | 2017-11-03 05:46 | NUR ---
Pt currently resting, eyes closed. O2 3L NC. no c/o sob when getting up to brp. Tolerating diet well. Was medicatd with scheduled Ambien 10 and Trazadone 200mg po per insomnia. Pt stated that he has not slept much this shift. No c/o ches pain. Continues to have moist, ocassional productive cough.
--- NOTE | 2017-11-03 12:12 | NUR ---
PATIENT SITTING UP AT EDGE OF BED, VS STABLE. LUNG SOUNDS COURSE THROUGHOUT AND DIMINISHED IN BASES. PATIENT AAOX3. 94% NC 2.5 L. IV ANTIBIOTICS INFUSED, REMOVED IV CATHETERS, CATH INTACT. NO COMPLAINTS PAIN. DISCUSSED IV ANTIBIOTICS SENT TO [facility], DISCUSSED SYMPTOMS. PATIENT VERBALIZED UNDERSTANDING. PLAN FOR PATIENT TO FOLLOW UP WITH PCP AND HAVE MRI DONE IF PATIENT CONTINUES TO HAVE ISSUES WITH RECURRENT PNEAMONIA OR WORSENING SYMPTOMS. PATIENT VERBALIZED UNDERSTANDING.
--- NOTE | 2017-11-03 12:33 | NUR ---
PT DRESSED, RESTING ON BED, WAITING FOR DC. PT STATED HIS SHOULD BE IN SOON. STATED HE NEEDS STO HAVE A TALK WITH HIS SONS ABOUT HOW HE WILL NEED THEIR HELP FROM TIME TO TIME. HE SAID I JUST CAN'T KEEP HAVING TO COME IN FOR THIS. VERY PLEASED WITH CARE FROM STAFF. CAME IN, EXTENDED A BLESSING, PT THANKED ME.
== END 2017-11-03 11:08 | disposition home or self-care (01) | DRG 194 ==
LOC: ED 05:44 → MS 09:16
PROVIDERS: ADMIT Internal Medicine
DX: J18.9 Pneumonia, unspecified organism (principal); J96.11 Chronic respiratory failure with hypoxia; I25.10 Atherosclerotic heart disease of native coronary artery without angina pectoris; I10 Essential (primary) hypertension; E83.42 Hypomagnesemia; K21.9 Gastro-esophageal reflux disease without esophagitis; J44.9 Chronic obstructive pulmonary disease, unspecified; E78.5 Hyperlipidemia, unspecified; F51.04 Psychophysiologic insomnia; I48.91 Unspecified atrial fibrillation; Z95.1 Presence of aortocoronary bypass graft; Z95.0 Presence of cardiac pacemaker; Z79.01 Long term (current) use of anticoagulants; Z87.891 Personal history of nicotine dependence
CPT/HCPCS: 36415; 71045; 80048; 80053; 82803; 83605; 83735; 83880; 84484; 85025; 85610; 87040; 87070; 87205; 93005; 93010; 94640; 94667; 94668; 94760; J0456; J0696; J2930; J3475; J7120

== ENCOUNTER 2018-04-28 23:21 | Emergency (ER) | payer MEDICARE, OTHER ==
[~2018-04-28] VITALS: Ht 180.3 cm; Wt 176.0 kg
--- OUTSIDE RECORDS SUMMARY | ~2018-04-28 | XMS | Clinical Summary ---
Demographics + + + | Address | [address] | | | [place] [address] | + + + | Home Phone | | + + + | Preferred Language | Unknown | + + + | Marital Status | | + + + | Lutheran Affiliation | Unknown | + + + | Race | Unknown | + + + | Ethnic Group | Unknown | + + + Author + + + | Author | [facility] | | | and [place] | + + + | Organization | [facility] | | | and [place] | + + + | Address | Unknown | + + + | Phone | Unavailable | + + + Support + + + + + | Name | Relationship | Address | Phone | + + + + + | Roz Sierra | ECON | [address] | | | | | [place] | | | | | [address] | | + + + + + Care Team Providers + +------+ + | 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 | Disp. | Refills | Star | End | Statu | | | | | | t | Date | s | | | | | | Date | | | + + + +---------+------+------+-------+ | niacin 500 mg CR | 2 capsules by mouth | 180 | 1 | 04/2 | | Activ | | capsule | at night | capsule | | 2/20 | | e | | | | | | 13 | | | + + + +---------+------+------+-------+ | Multiple | Take 1 tablet by | | | | | Activ | | Vitamins-Minerals | mouth Daily. | | | | | e | | (THERA-M MULTIPLE | | | | | | | | VITAMINS PO) | | | | | | | + + + +---------+------+------+-------+ | Respiratory | Use as directed with | 1 each | 0 | 01/ | | Activ | | Therapy Supplies | nebulizer | | | 11/01 | | e | | (NEBULIZER | medication. Dx: 496 | | | 14 | | | | COMPRESSOR) KIT | SIENNA: [employer]. | | | | | | + + + +---------+------+------+-------+ | PROAIR HFA 108 (90 | INHALE TWO PUFFS BY | 8.5 g | 5 | 06/ | | Activ | | BASE) MCG/ACT | MOUTH INTO THE LUNGS | | | 6/20 | | e | | inhaler | EVERY SIX HOURS | | | 16 | | | | | NEEDED | | | | | | + + + +---------+------+------+-------+ | oxygen | Inhale 3 L into the | | | 12/1 | | Activ | | | lungs continuous. | | | 12/02 | | e | | | Dispense portable | | | 16 | | | | | battery operated O2 | | | | | | | | concentrator that | | | | | | | | can deliver 3 L/min | | | | | | | | walking (on 2 L | | | | | | | | walking desat to | | | | | | | | 84%; on 4 L walking | | | | | | | | desaturated only | | | | | | | | briefly once to 87% | | | | | | + + + +---------+------+------+-------+ | budesonide | Take 2 mLs by | 120 mL | 11 | 05/1 | | Activ | | (PULMICORT) 0.25 | nebulization 2 times | | | 02/01 | | e | | mg/2 mL nebulizer | daily. Dx: J43.9 | | | 17 | | | | solutionIndications: | SIENNA: 99 months Send | | | | | | | Chronic obstructive | to [place] [place] | | | | | | | pulmonary disease, | | | | | | | | unspecified COPD | | | | | | | | type ([facility]) | | | | | | | + + + +---------+------+------+-------+ | formoterol | Take 2 mLs by | 120 mL | 11 | 05/1 | | Activ | | (PERFOROMIST) 20 | nebulization Every | | | 6/20 | | e | | MCG/2ML nebulizer | 12 hours. Dx: J43.9 | | | 17 | | | | solutionIndications: | SIENNA: 99 months Send | | | | | | | Chronic obstructive | to [facility] | | | | | | | pulmonary disease, | | | | | | | | unspecified COPD | | | | | | | | type ([facility]) | | | | | | | + + + +---------+------+------+-------+ | magnesium chloride | Take 64 mg by mouth | | | 10/0 | | Activ | | (MAG64) 64 mg CR | Daily. | | | 2/20 | | e | | tablet | | | | 17 | | | + + + +---------+------+------+-------+ | Westbrook-3 Fatty | Take 1,200 mg by | | | | | Activ | | Acids (FISH OIL) | mouth 2 times daily. | | | | | e | | 1200 MG | | | | | | | | CAPSIndications: | | | | | | | | Coronary artery | | | | | | | | disease involving | | | | | | | | igiugig coronary | | | | | | | | artery of igiugig | | | | | | | | heart without angina | | | | | | | | pectoris, | | | | | | | | Pacemaker, | | | | | | | | Sinoatrial node | | | | | | | | dysfunction ([facility]) | | | | | | | + + + +---------+------+------+-------+ | atorvaSTATin | TAKE 1 TABLET BY | 90 | 3 | 01/3 | | Activ | | (LIPITOR) 20 mg | MOUTH EVERY EVENING | tablet | | 1/20 | | e | | tablet | | | | 18 | | | + + + +---------+------+------+-------+ | isosorbide | TAKE 1 TABLET BY | 90 | 1 | 03/2 | | Activ | | mononitrate (IMDUR) | MOUTH EVERY MORNING | tablet | | 8/20 | | e | | 30 mg ER tablet | | | | 18 | | | + + + +---------+------+------+-------+ | metoprolol | TAKE 1 TABLET BY | 90 | 1 | 04/2 | | Activ | | succinate | MOUTH EVERY DAY | tablet | | 7/20 | | e | | (TOPROL-XL) 100 mg | | | | 18 | | | | ER tablet | | | | | | | + + + +---------+------+------+-------+ | warfarin | TAKE 1 TABLET BY | 30 | 2 | 04/2 | | Activ | | (COUMADIN) 5 mg | MOUTH DAILY | tablet | | 7/20 | | e | | tablet | | | | 18 | | | + + + +---------+------+------+-------+ | furosemide (LASIX) | TAKE 1 TABLET BY | 90 | 1 | 04/2 | | Activ | | 40 mg tablet | MOUTH EVERY DAY | tablet | | 7/20 | | e | | | | | | 18 | | | + + + +---------+------+------+-------+ | traZODone | TAKE 1 TO 2 TABLETS | 180 | 1 | 05/1 | | Activ | | (DESYREL) 100 mg | BY MOUTH EVERY NIGHT | tablet | | 4/20 | | e | | tablet | AT BEDTIME | | | 18 | | | + + + +---------+------+------+-------+ | zolpidem (AMBIEN) | TAKE 1 TABLET BY | 90 | 1 | 07/2 | | Activ | | 10 mg tablet | MOUTH EVERY DAY | tablet | | 0/20 | | e | | | NEEDED | | | 18 | | | + + + +---------+------+------+-------+ | | Take 1-2 tablets by | 28 | 0 | 07/2 | | Activ | | oxyCODONE-acetaminop | mouth every 6 hours | tablet | | 3/20 | | e | | hen (PERCOCET) 5-325 | as needed for Pain. | | | 18 | | | | mg per tablet | | | | | | | + + + +---------+------+------+-------+ | omeprazole | TAKE 1 CAPSULE BY | 180 | 3 | 07/2 | | Activ | | (PRILOSEC) 20 mg | MOUTH TWICE DAILY | capsule | | 3/20 | | e | | capsule | | | | 18 | | | + + + +---------+------+------+-------+ | potassium chloride | TAKE ONE TABLET BY | 90 | 3 | 03/15 | | Activ | | (KLOR-CON) 10 mEq | MOUTH EVERY DAY | tablet | | 12/02 | | e | | CR tablet | | | | 18 | | | + + + +---------+------+------+-------+ Active Problems + + + | Problem | Noted Date | + + + | Intermittent atrial fibrillation (HCC) | 06/14/2017 | + + + + + | Overview: Initiated on warfarin for new afib diagnosis during | | hospitalization at [facility] April 2017. 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 Suggs 07/2013. | | Bilateral. Likely related to fluid overload. | + + + + + | Hypoxemia | 09/12/2012 | + + + + + | Overview: On 2.5L of oxygen daytime with exertion, 3L with | | heavy exertion, and 2.5L nighttime. He does not need oxygen at | | rest, unless talking a lot, then requires 1L. Repeat testing | | done 12/22/2015 shows he requires 2LPM at rest and 6LPM with | | walking. | + + + + + | Preventative health care | 08/17/2012 | + + + + + | Overview: PSA: 0.30 03/2011 | + + + + + | Pacemaker Medtronic Dual Chamber - SUW | 05/03/2012 | + + + + + | Overview: Formatting of this note may be different from the | | original. MODEL NAME MODEL# SERIAL# DATE IMPLANTED GENERATOR | | Medtronic Adapta [id number] 05/03/2012 RV LEAD Medtronic | | Active Bipolar CapSureFix 4076 [id number] 05/03/2012 A LEAD | | Medtronic Active Bipolar CapSureFix 4076 [id number] 05/03/2012 | + + + + + | Sinoatrial node dysfunction/Symptomatic Bradycardia | 05/03/2012 | + + + + + | Overview: Holter monitor on 01/05/12 showed NSR, rare PVC's, | | occasional PAC's, occasional bradycardia min HR 45 bpm.Holter | | monitor 04/19/12 shows sinus rhythm, rare premature atrial | | contractions, rare premature ventricular contractions, heart rate | | 52 to 102 beats per minute, occasionally down to 43 beats per | | minute (at 11 AM while working at [email or web address]).Status post Medtronic | | dual-chamber permanent pacemaker implantation 05/03/12 by | | [place] at [facility]. | + + + + + | Chronic gastric ulcer | 03/06/2012 | + + + + + | Overview: ICD-10 Record update | + + + + + | Chest pain | 09/22/2011 | + + + + + | Overview: Echocardiogram 05/08/12 Normal left ventriculat | | size, wall thickness and motion. LVEF 60%. A grade 1 left | | ventricular diastolic dysfunction. A mild mitral annular | | calcification. | + + + + + | BENIGN PROSTATIC HYPERTROPHY, WITH URINARY OBSTRUCTION | 06/14/2011 | + + + | Hyperlipidemia, mixed | 04/14/2011 | + + + + + | Last Assessment & Plan: His fasting lipid profile 03/14/13 | | shows total cholesterol 127, HDL 36, LDL 77, triglycerides 72, | | non-HDL cholesterol 91, VLDL cholesterol 14, cholesterol/HDL | | ratio 3.5. He remains on atorvastatin 40 mg daily. | + + + + + | Coronary artery disease involving igiugig coronary artery of | 04/14/2011 | | igiugig heart without angina pectoris | | + + + + + | Overview: Status post CABG x4 at [facility] in | | [facility] in 1992.Status post PTCA and stents x2 of the | | ostium of left circumflex artery by at [facility] | | on 09/05/06. Inability to deliver a stent to the midportion of | | left circumflex artery. Abnormal Lexiscan SPECT MPI with | | medium-sized, predominantly reversible defect of moderate | | severity in inferior wall. LVEF was 52%. Left heart catheter from | | 10/11/11 revealed severe 3 vessel disease, open RODRIGUEZ to LAD, open | | SVG to diagonal, occluded SVG to OM1, occluded SVG to PDA. | | Hypokinesis of inferior wall, LVEF was 52%. He is being | | medically managed as his angiogram shows no areas that are | | intervenable. Last Assessment & Plan: Today he denies any | | symptoms of chest pain. He reports he had some chest wall | | discomfort etc. with his episode of pneumonia recently. This has | | resolved now that his cough has resolved. There otherwise no | | signs or symptoms of overt congestive heart failure. His | | physical exam shows trace lower extremity ankle edema. | + + + + + | INSOMNIA | 04/14/2011 | + + + | ERECTILE DYSFUNCTION, ORGANIC | | + + + | Hiatal hernia | | + + + | CKD (chronic kidney disease) | | + + + + + | Overview: He was noted to have a sudden decline in his | | renal function on his labs 03/25/13 after his gastroenteritis with | | inability to maintain hydration. Will recheck his labs today. | + + Resolved Problems + + + + | Problem | Noted | Resolved | | | Date | Date | + + + + | COPD with acute exacerbation (HCC) | 08/24/19 | | | | 16 | 6 | + + + + | Acute kidney failure with lesion of tubular necrosis (HCC) | 06/15/20 | | | | 14 | 5 | + + + + | Volume depletion, gastrointestinal loss | 06/15/20 | | | | 14 | 5 | + + + + | Hypotension arterial | 06/15/20 | | | | 14 | 5 | + + + + | Hyperkalemia, diminished renal excretion | 06/15/20 | | | | 14 | 5 | + + + + | Pneumonia | 06/28/20 | | | | 13 | 4 | + + + + | HYPOTENSION WITH HISTORY OF HYPERTENSION | 04/14/20 | | | | 11 | 4 | + + + + + + | Last Assessment & Plan: Today he is normotensive and has | | not had any lightheadedness or dizziness. | + + + + + + | GERD (gastroesophageal reflux disease) | 04/14/20 | | | | 11 | 4 | + + + + | Urinary hesitancy | 03/24/20 | | | | 11 | 4 | + + + + | Abdominal pain, unspecified site | 03/24/20 | | | | 11 | 3 | + + + + + + | Overview: ICD-10 Record update | + + + +---+ + | Hematuria | | | | | | 3 | + +---+ + + + | Overview: ANSHULU [id number] Decision | + + + +---+ + | SYMPTOMATIC BRADYCARDIA | | | | | | 4 | + +---+ + + + | Overview: Holter monitor on 01/05/12 showed NSR, rare PVC's, | | occasional PAC's, occasional bradycardia min HR 45 bpm.Holter | | monitor 04/19/12 shows sinus rhythm, rare premature atrial | | contractions, rare premature ventricular contractions, heart rate | | 52 to 102 beats per minute, occasionally down to 43 beats per | | minute (at 11 AM while working at [email or web address]). Status post | | Medtronic dual-chamber permanent pacemaker implantation 05/03/12 | | by Dr. Tran at [facility]. Last | | Assessment & Plan: Today his device interrogation shows a | | normal and stable function. | + + Encounters +--------+ + + + + | Date | Type | Specialty | Care Team | Description | +--------+ + + + + | 03/27/ | Refill | | Genoveva Mccurdy, | Medication Refill | | 2017 | | | REGISTERED NURSE SUPERVISOR | | +--------+ + + + + | 03/16/ | Telephone | | Carlos Suggs, | Back Pain; Leg Pain | | 2017 | | | MD | | +--------+ + + + + | 03/15/ | Office | | Carlos Suggs, | Acute right-sided | | 2018 | Visit | | MD | low back pain | | | | | | without sciatica | | | | | | (Primary Dx) | +--------+ + + + + | 03/06/ | Emergency | | Emerson Buchanan MD | Strain of lumbar | | 2017 | | | | region, initial | | | | | | encounter (Primary | | | | | | Dx) | +--------+ + + + + | 03/06/ | Refill | | Carlos Suggs, | Medication Refill | | 2017 | | | MD | | +--------+ + + + + | 03/06/ | Telephone | | Carlos Suggs, | Back Pain | | 2017 | | | MD | | +--------+ + + + + | 03/03/ | Refill | | Carlos Suggs, | Medication Refill | | 2017 | | | MD | | +--------+ + + + + from Last 3 Months Immunizations + + + + | Name | Dates Previously Given | Next Due | + + + + | INFLUENZA 67 Y OR >, | 04/16/2016, 04/25/2015 | | | TRIVALENT HIGH-DOSE | | | + + + + | INFLUENZA PF 20 Y OR | 05/06/2014, 06/08/2013 | | | >,TRIVALENT | | | | RECOMBINANT | | | + + + + | INFLUENZA PF | 05/12/2017 | | | QUAD(PED/ADOL/ADULT) | | | | ,PSKT or VIAL | | | + + + + | INFLUENZA, [id number], | 08/02/2009 | | | UNSPECIFIED | | | + + + + | PNEUMOCOCCAL | 07/28/2015 | | | CONJUGATE 13-VALENT | | | | (PCV13) | | | + + + + | PNEUMOCOCCAL | 05/12/2017, 06/05/2014 | | | POLYSACCHARIDE | | | | 23-VALENT (PPSV23) | | | + + + + | TDAP, (ADOL/ADULT) | 06/12/2012 | | + + + + Family History + + +------+ + | Medical History | Relation | Name | Comments | + + +------+ + | Cancer | Brother | | unknown type | + + +------+ + | Heart disease | Brother | | | + + +------+ + | Heart failure | Mother | | | + + +------+ + | Heart disease | Sister | | | + + +------+ + | Prostate cancer | Neg Hx | | No family history of prostate cancer | + + +------+ + + + + + + | Relation | Name | Status | Comments | + + + + + | Brother | | Alive | Unknown | + + + + + | Brother | | Alive | Unknown | + + + + + | Father | | | Gunshot | | | | (Age | | | | | 37) | | + + + + + | Mother | | | congestive heart failure | | | | (Age | | | | | 78) | | + + + + + | Other | Family Hx | | | + + + + + | Sister | | Alive | Unknown | + + + + + | Sister | | | heart disease | | | | (Age | | | | | 53) | | + + + + + Social History + + + +--------+ + | Tobacco Use | Types | Packs/Day | Years | Date | | | | | Used | | + + + +--------+ + | Former Smoker | Cigarettes | 0.8 | 30 | Quit: 09/08/1989 | + + + +--------+ + + +---+---+---+ | Smokeless Tobacco: | | | | | Never Used | | | | + +---+---+---+ + + | Tobacco Cessation: Counseling Given: No | + + + + +---------+ + | Alcohol Use | Drinks/We | oz/Week | Comments | | | ek | | | + + +---------+ + | No | 0 | 0.0 | | | | Standard | | | | | drinks or | | | | | | | | | | equivalen | | | | | t | | | + + +---------+ + + + + | Sex Assigned at | Date Recorded | | | | + + + | Not on file | | + + + Last Filed Vital Signs + + + + | Vital Sign | Reading | Time Taken | + + + + | Blood Pressure | 112/62 | 03/15/2018 1608 PDT | + + + + | Pulse | 68 | 03/15/20181539 PDT | + + + + | Temperature | 37.1 C (98.8 F) | 03/15/20181539 PDT | + + + + | Respiratory Rate | 18 | 03/15/20181539 PDT | + + + + | Oxygen Saturation | 91% | 03/15/20181539 PDT | + + + + | Inhaled Oxygen | - | - | | Concentration | | | + + + + | Weight | 104.3 kg (229 lb 15 | 03/15/2018 1540 PDT | | | oz) | | + + + + | Height | 180.3 cm (5' 11") | 03/06/2018 0952 PDT | + + + + | Body Mass Index | 32.07 | 03/15/2018 1540 PDT | + + + + Plan of Treatment +--------+---------+ + + + | Date | Type | Specialty | Care Team | Description | +--------+---------+ + + + | 06/01/ | Office | | Genoveva Mccurdy, | | | 2017 | Visit | | [address] [address] | | | | | | [place] | | | | | | [address] | | | | | | | | +--------+---------+ + + + | 06/22/ | Office | | | | | 2017 | Visit | | | | +--------+---------+ + + + | 09/15/ | Office | | Carlos Suggs, | | | 2018 | Visit | | MD Padma [address] | | | | | | [place] | | | | | | [address] | | | | | | | | +--------+---------+ + + + + + + + + | Health Maintenance | Due Date | Last Done | Comments | + + + + + | Vaccine: Zoster (1 | | | | | of 2) | 0 | | | + + + + + | Colorectal Cancer | | 02/24/2012 | | | Screening (FIT) | 3 | | | + + + + + | Statin Therapy | | | | | (optimal intensity) | 5 | | | + + + + + | Vaccine: Influenza | | 05/12/2017, 04/16/2016, | | | (#1) | 8 | 04/25/2015, Additional history | | | | | exists | | + + + + + | Vaccine: | | 06/12/2012 | | | Dtap/Tdap/Td (2 - | 2 | | | | Td) | | | | + + + + + | Vaccine: | Completed | 05/12/2017, 07/28/2015, | | | Pneumococcal 65+ | | 06/05/2014 | | | Low/Medium Risk | | | | + + + + + Implants + +--------+--------+ +--------+--------+--------+ | Implanted | Type | Area | Manufacture | Device | Expira | Model | | | | | r | | tion | / | | | | | | Identi | Date | Serial | | | | | | fier | | / Lot | + +--------+--------+ +--------+--------+--------+ | Medtronic Dual | Pacema | Chest | MEDTRONIC | | | ADAPTA | | ChamberImplanted: 05/03/2012 | ker | Wall | MEDTRONIC | | | | | by Marycarmen Tran MD | | | Summify. | | | #[id number] | | (Quantity not on | | | | | | 1 | | file)Explanted: | | | | | | /[id number] | | | | | | | | [id number] | | | | | | | | / | + +--------+--------+ +--------+--------+--------+ Procedures + +--------+ + + + | Procedure Name | Priori | Date/Time | Associated Diagnosis | Comments | | | ty | | | | + +--------+ + + + | URINALYSIS WITH | STAT | 03/06/2018 | | Results for this | | MICROSCOPIC WITH | | 1148 PDT | | procedure are in the | | CULTURE IF INDICATED | | | | results section. | + +--------+ + + + | CT LUMBAR SPINE WO | STAT | 03/06/2018 | | Results for this | | CONTRAST | | 1052 PDT | | procedure are in the | | | | | | results section. | + +--------+ + + + | EXTRA LAVENDER TOP | STAT | 03/06/2018 | | Results for this | | TUBE | | 1014 PDT | | procedure are in the | | | | | | results section. | + +--------+ + + + | EXTRA GREEN TOP TUBE | STAT | 03/06/2018 | | Results for this | | | | 1014 PDT | | procedure are in the | | | | | | results section. | + +--------+ + + + | EXTRA GOLD TOP TUBE | STAT | 03/06/2018 | | Results for this | | | | 1014 PDT | | procedure are in the | | | | | | results section. | + +--------+ + + + | RAINBOW BLOOD PANEL | STAT | 03/06/2018 | | Results for this | | | | 1014 PDT | | procedure are in the | | | | | | results section. | + +--------+ + + + | PROTIME INR | STAT | 03/06/2018 | | Results for this | | | | 1014 PDT | | procedure are in the | | | | | | results section. | + +--------+ + + + | BASIC METABOLIC | STAT | 03/06/2018 | | Results for this | | PANEL | | 1014 PDT | | procedure are in the | | | | | | results section. | + +--------+ + + + | CBC W/AUTO | STAT | 03/06/2018 | | Results for this | | DIFFERENTIAL | | 1014 PDT | | procedure are in the | | | | | | results section. | + +--------+ + + + | ED INFORMATION | Routin | 03/06/2018 | | | | EXCHANGE | e | 0948 PDT | | | + +--------+ + + + +---+--------+ | | | | | Proced | | | ure | | | Note - | | | Tona, | | | Lab In | | | | | | Hlseve | | | n - | | | | | | 2017 | | | 0949 | | | PDT | | | Format | | | ting | | | of | | | this | | | note | | | may be | | | | | | differ | | | ent | | | from | | | the | | | origin | | | al.TONA | | | E09:46 | | | ENRRIQUE | | | [id number] | | | [id number] | | | This | | | patien | | | t has | | | regist | | | ered | | | at the | | | | | | Provid | | | ence | | | [facility] | [facility] | | | l | | | Center | | | | | | Emerge | | | ncy | | | Depart | | | ment | | | For | | | more | | | inform | | | ation | | | visit: | | | | | | https: | | | //secu | | | re.[place] | | | ecarep | | | [email or web address] | | | m/[email or web address] | | | ent/78 | | | [id number] | | | [phone] | | | [phone] | | | [phone] | | | [phone] | | | [phone] | | | Securi | | | ty | | | Events | | | No | | | recent | | | | | | Securi | | | ty | | | Events | | | | | | curren | | | tly on | | | | | | fileED | | | Care | | | Guidel | | | inesTh | | | ere | | | are | | | curren | | | tly no | | | ED | | | Care | | | Guidel | | | queenie | | | in | | | MIHIR | | | for | | | this | | | patien | | | t. | | | Please | | | check | | | your | | | facili | | | ty's | | | medica | | | l | | | record | | | s | | | system | | | .Recen | | | t | | | Emerge | | | ncy | | | Depart | | | ment | | | Visit | | | Summar | | | yAdmit | | | Date | | | Facili | | | ty | | | City | | | State | | | Type | | | Major | | | Type | | | Diagno | | | ses or | | | Chief | | | | | | Compla | | | int | | | [facility] | | | 23, | | | 2018 | | | Provid | | | ence | | | [facility] | | [facility] | [place] | | | [place] | | | Emerge | | | ncy | | | Emerge | | | ncy | | | back | | | pain | | | E.D. | | | Visit | | | Count | | | (12 | | | mo.)Fa | | | cility | | | | | | Visits | | | Low | | | [facility] | | | | | | [facility] | | | | | | Region | | | al | | | Medica | | | l | | | Center | | | 1 0 | | | Provid | | | ence | | | St. | | | [facility] | | | Medica | | | l | | | Center | | | 2 0 | | | [facility] | | | [place] | | | y | | | Hospit | | | al 3 0 | | | Total | | | 6 0 | | | Note: | | | Visits | | | | | | indica | | | te | | | total | | | known | | | visits | | | . | | | Medica | | | id Low | | | | | | Acuity | | | Dx | | | are | | | the | | | number | | | of | | | primar | | | y | | | diagno | | | ses on | | | the | | | Medica | | | id's | | | Low | | | Acuity | | | dx | | | list. | | | | | | Recent | | | | | | Inpati | | | ent | | | Visit | | | Summar | | | yNo | | | record | | | ed | | | inpati | | | ent | | | visits | | | . PDMP | | | | | | Report | | | PDMP | | | query | | | found | | | no | | | report | | | .[!] | | | Patien | | | t is | | | on | | | [place] | | | gton | | | PRCPro | | | vider | | | PRC | | | Type | | | Phone | | | Servic | | | e | | | Dates | | | DR | | | DOUGLA | | | S | | | EMILY | | | , MD | | | Lock | | | In | | | [phone]) | | | [phone] | | | [phone] | | | [phone] | | | [phone] | | | [phone] | | | Curren | | | t If | | | this | | | client | | | is | | | seen | | | in | | | your | | | facili | | | ty, | | | please | | | | | | notify | | | the | | | client | | | 's PCP | | | | | | and/or | | | refer | | | the | | | client | | | back | | | to | | | their | | | PCP | | | for | | | approp | | | riate | | | follow | | | -up | | | and | | | manage | | | ment | | | of | | | care. | | | If you | | | have | | | any | | | questi | | | ons or | | | | | | concer | | | ns | | | about | | | the | | | client | | | or | | | the | | | PRC | | | progra | | | m, | | | please | | | feel | | | free | | | to | | | contac | | | t us | | | at | | | [phone] | | | [phone] | | | [phone] | | | ext. | | | [phone] | | | or go | | | to the | | | PRC | | | websit | | | e at | | | http:/ | | | [email or web address]. | | | [email or web address] | | | a.gov/ | | | PRR/ | | | for | | | more | | | inform | | | ation. | | | | | | Additi | | | onal | | | Care | | | Provid | | | ersPro | | | vider | | | PRC | | | Type | | | Phone | | | Fax | | | Servic | | | e | | | Dates | | | SASHA | | | ON, | | | SHANNAN | | | L, MD | | | Indivi | | | dual | | | or | | | Groups | | | (of | | | Indivi | | | duals) | | | | | | Curren | | | t | | | EMILY | | | , | | | DOUGLA | | | S D, | | | MD | | | Indivi | | | dual | | | or | | | Groups | | | (of | | | Indivi | | | duals) | | | (509) | | | | | | [phone] | | | [phone] | | | [phone]) | | | [phone] | | | [phone] | | | Curren | | | t | | | Criter | | | ia met | | | | | | PRCKno | | | wn | | | Aliase | | | sNo | | | known | | | aliase | | | s. The | | | above | | | | | | inform | | | ation | | | is | | | provid | | | ed for | | | the | | | sole | | | purpos | | | e of | | | patien | | | t | | | treatm | | | ent. | | | Use of | | | this | | | inform | | | ation | | | beyond | | | the | | | terms | | | of | | | Data | | | Sharin | | | g | | | Memora | | | ndum | | | of | | | Unders | | | tandin | | | g and | | | Licens | | | e | | | Agreem | | | ent is | | | | | | prohib | | | ited. | | | In | | | certai | | | n | | | cases | | | not | | | all | | | visits | | | may | | | be | | | repres | | | ented. | | | | | | Consul | | | t the | | | aforem | | | ention | | | ed | | | facili | | | ties | | | for | | | additi | | | onal | | | inform | | | ation. | | | 2017 | | | Collec | | | tive | | | Med[employer] | | | l | | | [employer] | | | logies | | | , [employer] | | | - | | | [place] | | | [place] | | | [place], | | | [place] - | | | [email or web address] | | | ollect | | | ivemed | | | icalte | | | [email or web address] | | | | +---+--------+ from Last 3 Months Results Urinalysis with Microscopic with Culture if Indicated (03/06/2018 1148) + + + + + | Component | Value | Ref Range | Performed At | + + + + + | COLOR | Yellow | Light Yellow, | [facility] | | | | Yellow, Straw | [facility] | | | | [facility] - | | | | | LABORATORY | + + + + + | CLARITY | Clear | Clear | [facility] | | | | | [facility] | | | [facility] - | | | | | LAB[facility]ATORY | + + + + + | PH UA | 7.0 | 5.0 - 8.0 | [facility] | | | | | [facility] | | | | [facility] - | | | | | LABORATORY | + + + + + | Specific [place] | 1.008 | 1.001 - 1.030 | [facility] | | | | | [facility] | | | | | [facility] - | | | | | LABORATORY | + + + + + | PROTEIN UA | Negative | Negative | [facility] | | | | | [facility] | | | | | [facility] - | | | | | LABORATORY | + + + + + | BLOOD UA | Negative | Negative | [facility] | | | | | [facility] | | | | [facility] - | | | | | LABORATORY | + + + + + | GLUCOSE UA | Negative | Negative | [facility] | | | | | [facility] | | | | | [facility] - | | | | | LABORATORY | + + + + + | KETONES UA | Negative | Negative | [facility] | | | | | [facility] | | | | | [facility] - | | | | | LABORATORY | + + + + + | BILIRUBIN UA | Negative | Negative | [facility] | | | | | [facility] | | | | | [facility] - | | | | | LAB[facility]ATORY | + + + + + | NITRITE UA | Negative | Negative | [facility] | | | | | [facility] | | | | | [facility] - | | | | | LABORATORY | + + + + + | LEUKOCYTES ESTERASE | Negative | Negative | [facility] | | UA | | | [facility] | | | | | [facility] - | | | | | LABORATORY | + + + + + | UROBILINOGEN UA | Negative | 0.2 mg/dL, 1.0 | [facility] | | | | mg/dL, Negative | [facility] | | | | | [facility] - | | | | | LABORATORY | + + + + + | WBC UA | 0-2 | 0 - 2 /HPF | [facility] | | | | | [facility] | | | | | [facility] - | | | | | LABORATORY | + + + + + | RBC UA | 0-2 | 0 - 2 /HPF | [facility] | | | | | [facility] | | | | | [facility] - | | | | | LABORATORY | + + + + + | SQUAMOUS EPITHELIAL | 0-2 | 0 - 2 /LPF | [facility] | | UA | | | [facility] | | | | | [facility] - | | | | | LABORATORY | + + + + + | BACTERIA UA | Negative | Negative /HPF | [facility] | | | | | [facility] | | | | | [facility] - | | | | | LABORATORY | + + + + + | URINE COMMENT | Urine Culture Not | | [facility] | | | Indicated | | [facility] | | | | | CENTER - | | | | | LABORATORY | + + + + + + + | Specimen | + + | Urine - Urine, | | Unspecified Source | + + + + + + + | Performing | Address | City/State/Zipcode | Phone Number | | Organization | | | | + + + + + | [facility] | [address] | [place] | [phone] | | [facility] | | [address] | | | - LABORATORY | | | | + + + + + | [facility] | [address] | [place], [place] | | | [facility] | | [address] | | | - LABORATORY | | | | + + + + + CT Lumbar Spine wo Contrast (03/06/2018 1052) + + + | Narrative | Performed At | + + + | TECHNIQUE: Noncontrast axial CT imaging was obtained through the | [facility] | | lumbar spine with coronal and sagittal reformats. CLINICAL | | | INFORMATION: BACK PAIN COMPARISON: Abdominal CT 05/28/2011. | | | FINDINGS: Stable left adrenal nodule measuring up to 1.8 cm in | | | attenuation consistent with an adenoma. Calcified bilateral renal | | | stones without evidence of hydronephrosis. Prominent peripheral | | | vascular calcifications with mild infrarenal aortic ectasia measuring | | | up to 2.5 cm in greatest diameter. Slight | | | dextrocurvature. Slight degenerative anterolisthesis of L4 over L5. | | | Stable height of the vertebral bodies with slight anterior wedge | | | compression deformity at L1. No acute fracture identified. | | | L3-L4: Mild disc height loss. Mild concentric disc bulge, mild | | | bilateral facet arthrosis, and ligamentum flavum hypertrophy | | | resulting in mild focal spinal canal narrowing and minimal to mild | | | bilateral neural foraminal narrowing. L4-L5: Mild bilateral facet | | | arthrosis and ligamentum flavum hypertrophy is mild concentric disc | | | bulge resulting in mild spinal canal narrowing and mild right/minimal | | | left neural foraminal narrowing. L5-S1: Severe disc height | | | loss. Chronic endplate changes and large osteophyte | | | formation. Mild bilateral facet arthrosis and moderate concentric | | | disc bulge resulting in mild spinal canal narrowing and moderate to | | | severe bilateral neural foraminal narrowing, right greater than the | | | left. IMPRESSION - No acute lumbar spine abnormality. | | | Multilevel degenerative changes of the lumbar spine as detailed above, | | | most notable at L5-S1 with multifactorial moderate to severe | | | bilateral neural foraminal narrowing. Bilateral nephrolithiasis | | | without evidence of obstruction. Left adrenal adenoma. | | | Dictated and Signed by: Nas Hui MD Electronically signed: | | | 03/06/2018 11:15 AM | | + + + + + | Procedure Note | + + | Tona, Rad Results In - 03/06/2018 1118 PDT | | TECHNIQUE: Noncontrast axial CT imaging was obtained through the lumbar spine | | with coronal and sagittal reformats. | | | | CLINICAL INFORMATION: BACK PAIN | | | | COMPARISON: Abdominal CT 05/28/2011. | | | | FINDINGS: | | Stable left adrenal nodule measuring up to 1.8 cm in attenuation consistent with | | an adenoma. | | | | Calcified bilateral renal stones without evidence of hydronephrosis. | | | | Prominent peripheral vascular calcifications with mild infrarenal aortic ectasia | | measuring up to 2.5 cm in greatest diameter. | | | | Slight dextrocurvature. Slight degenerative anterolisthesis of L4 over L5. | | Stable height of the vertebral bodies with slight anterior wedge compression | | deformity at L1. No acute fracture identified. | | | | L3-L4: Mild disc height loss. Mild concentric disc bulge, mild bilateral facet | | arthrosis, and ligamentum flavum hypertrophy resulting in mild focal spinal | | canal narrowing and minimal to mild bilateral neural foraminal narrowing. | | | | L4-L5: Mild bilateral facet arthrosis and ligamentum flavum hypertrophy is mild | | concentric disc bulge resulting in mild spinal canal narrowing and mild | | right/minimal left neural foraminal narrowing. | | | | L5-S1: Severe disc height loss. Chronic endplate changes and large osteophyte | | formation. Mild bilateral facet arthrosis and moderate concentric disc bulge | | resulting in mild spinal canal narrowing and moderate to severe bilateral neural | | foraminal narrowing, right greater than the left. | | | | IMPRESSION - | | No acute lumbar spine abnormality. | | | | Multilevel degenerative changes of the lumbar spine as detailed above, most | | notable at L5-S1 with multifactorial moderate to severe bilateral neural | | foraminal narrowing. | | | | Bilateral nephrolithiasis without evidence of obstruction. | | | | Left adrenal adenoma. | | | | Dictated and Signed by: Nas Hui MD | | Electronically signed: 03/06/2018 11:15 AM | + + + +---------+ + + | Performing | Address | City/State/Zipcode | Phone Number | | Organization | | | | + +---------+ + + | [facility] | | | | + +---------+ + + CBC w/ Auto Differential (03/06/2018 101) + + + + + | Component | Value | Ref Range | Performed At | + + + + + | WBC | 12.5 (H) | 4.0 - 11.0 K/uL | [facility] | | | | | [facility] | | | | | [facility] - | | | | | LABORATORY | + + + + + | RBC | 4.99 | 4.30 - 5.70 M/uL | [facility] | | | | | [facility] | | | | | [facility] - | | | | | LABORATORY | + + + + + | Hgb | 15.9 | 13.5 - 18.0 g/dL | [facility] | | | | | [facility] | | | | | [facility] - | | | | | LABORATORY | + + + + + | Hct | 45.7 | 40.0 - 51.0 % | [facility] | | | | | [facility] | | | | | [facility] - | | | | | LABORATORY | + + + + + | MCV | 91.6 | 83.0 - 101.0 fL | [facility] | | | | | [facility] | | | | | [facility] - | | | | | LABORATORY | + + + + + | MCH | 31.9 | 28.0 - 35.0 pg | [facility] | | | | | [facility] | | | | | [facility] - | | | | | LABORATORY | + + + + + | MCHC | 34.8 | 32.0 - 36.0 g/dL | [facility] | | | | | [facility] | | | | | [facility] - | | | | | LABORATORY | + + + + + | RDW-CV | 13.7 | <15.0 % | [facility] | | | | | [facility] | | | | | [facility] - | | | | | LABORATORY | + + + + + | Platelet Count | 188 | 140 - 440 K/uL | [facility] | | | | | [facility] | | | | | [facility] - | | | | | LABORATORY | + + + + + | MPV | 7.6 | fL | [facility] | | | | | [facility] | | | | | [facility] - | | | | | LABORATORY | + + + + + | % Neutrophils | 81.4 | 45.0 - 82.0 % | [facility] | | | | | [facility] | | | | | [facility] - | | | | | LABORATORY | + + + + + | % Lymphocytes | 8.5 (L) | 20.0 - 45.0 % | [facility] | | | | | [facility] | | | | | [facility] - | | | | | LABORATORY | + + + + + | % Monocytes | 8.3 | 4.0 - 12.0 % | [facility] | | | | | [facility] | | | | | [facility] - | | | | | LABORATORY | + + + + + | % Eosinophils | 1.3 | 0.0 - 5.0 % | [facility] | | | | | [facility] | | | | | [facility] - | | | | | LABORATORY | + + + + + | % Basophils | 0.5 | 0.0 - 1.0 % | [facility] | | | | | [facility] | | | | | [facility] - | | | | | LABORATORY | + + + + + | Absolute Neutrophils | 10.20 (H) | 1.80 - 8.50 K/uL | [facility] | | | | | [facility] | | | | | [facility] - | | | | | LABORATORY | + + + + + | Absolute Lymphocytes | 1.10 | 0.60 - 3.20 K/uL | [facility] | | | | | [facility] | | | | | [facility] - | | | | | LABORATORY | + + + + + | Absolute Monocytes | 1.00 | 0.00 - 1.00 K/uL | [facility] | | | | | [facility] | | | | | [facility] - | | | | | LABORATORY | + + + + + | Absolute Eosinophils | 0.20 | 0.00 - 0.40 K/uL | [facility] | | | | | [facility] | | | | | [facility] - | | | | | LABORATORY | + + + + + | Absolute Basophils | 0.10 | 0.00 - 0.10 K/uL | [facility] | | | | | [facility] | | | | | [facility] - | | | | | LABORATORY | + + + + + + + | Specimen | + + | Blood | + + + + + + + | Performing | Address | City/State/Zipcode | Phone Number | | Organization | | | | + + + + + | [facility] | [address] | [place] | [phone] | | [facility] | | [address] | | | - LABORATORY | | | | + + + + + | [facility] | [address] | [place] | | | [facility] | | [address] | | | - LABORATORY | | | | + + + + + Extra Lavender Top Tube (03/06/2018 1014) + +-------+ + + | Component | Value | Ref Range | Performed At | + +-------+ + + | Extra Lavender Top | Done | | [facility] | | Tube | | | [facility] | | | | | CENTER - | | | | | LABORATORY | + +-------+ + + + + | Specimen | + + | Blood | + + + + + + + | Performing | Address | City/State/Zipcode | Phone Number | | Organization | | | | + + + + + | [facility] | [address] | [place] | [phone] | | [facility] | | [address] | | | - LABORATORY | | | | + + + + + | [facility] | [address] | [place], [place] | | | [facility] | | [address] | | | - LABORATORY | | | | + + + + + Extra Green Top Tube (03/06/2018 1014) + +-------+ + + | Component | Value | Ref Range | Performed At | + +-------+ + + | Extra Green Top Tube | Done | | [facility] | | | | | [facility] | | | | | CENTER - | | | | | LABORATORY | + +-------+ + + + + | Specimen | + + | Blood | + + + + + + + | Performing | Address | City/State/Zipcode | Phone Number | | Organization | | | | + + + + + | [facility] | [address] | [place] | [phone] | | [facility] | | [address] | | | - LABORATORY | | | | + + + + + | [facility] | [address] | [place] | | | [facility] | | [address] | | | - LABORATORY | | | | + + + + + Extra Gold Top Tube (03/06/2018 1014) + +-------+ + + | Component | Value | Ref Range | Performed At | + +-------+ + + | EGDT | Done | | [facility] | | | | | [facility] | | | | | CENTER - | | | | | LABORATORY | + +-------+ + + + + | Specimen | + + | Blood | + + + + + + + | Performing | Address | City/State/Zipcode | Phone Number | | Organization | | | | + + + + + | [facility] | [address] | [place] | [phone] | | [facility] | | [address] | | | - LABORATORY | | | | + + + + + | [facility] | [address] | [place] | | | [facility] | | [address] | | | - LABORATORY | | | | + + + + + Protime INR (03/06/2018 1014) + + + + + | Component | Value | Ref Range | Performed At | + + + + + | Protime | 32.2 (H) | 11.3 - 13.9 seconds | [facility] | | | | | [facility] | | | | | CENTER - | | | | | LABORATORY | + + + + + | INR | 3.08 (H)Comment: Usual | 0.90 - 1.10 | [facility] | | | Oral Anticoagulation | | [facility] | | | Range: 2.0 - | | CENTER - | | | 3.0High Level Oral | | LABORATORY | | | Anticoagulation Range: | | | | | 2.5 - 3.5 | | | + + + + + + + | Specimen | + + | Blood | + + + + + + + | Performing | Address | City/State/Zipcode | Phone Number | | Organization | | | | + + + + + | [facility] | [address] | [place], [place] | [phone] | | [facility] | | [address] | | | - LABORATORY | | | | + + + + + | [facility] | [address] | [place], [place] | | | [facility] | | [address] | | | - LABORATORY | | | | + + + + + Basic Metabolic Panel (03/06/2018 1014) + + + + + | Component | Value | Ref Range | Performed At | + + + + + | NA | 138 | 136 - 149 mmol/L | [facility] | | | | | [facility] | | | | | CENTER - | | | | | LABORATORY | + + + + + | K | 3.8 | 3.5 - 5.1 mmol/L | [facility] | | | | | [facility] | | | | | CENTER - | | | | | LABORATORY | + + + + + | CL | 101 | 98 - 109 mmol/L | [facility] | | | | | [facility] | | | | | CENTER - | | | | | LABORATORY | + + + + + | CO2 | 29 | 24 - 31 mmol/L | [facility] | | | | | [facility] | | | | | CENTER - | | | | | LABORATORY | + + + + + | ANION GAP | 8 | 3 - 16 mmol/L | [facility] | | | | | [facility] | | | | | CENTER - | | | | | LABORATORY | + + + + + | GLUCOSE | 115 (H) | 70 - 109 mg/dL | [facility] | | | | | [facility] | | | | | CENTER - | | | | | LABORATORY | + + + + + | BUN | 15 | 7 - 18 mg/dL | [facility] | | | | | [facility] | | | | | CENTER - | | | | | LABORATORY | + + + + + | Creatinine, | 1.20 | 0.60 - 1.30 mg/dL | [facility] | | Serum/Plasma | | | [facility] | | | | | CENTER - | | | | | LABORATORY | + + + + + | eGFR if not | 59 (L)Comment: | >=60 mL/min/1.73m2 | [facility] | | [facility] | GLOMERULAR FILTRATION | | [facility] | | | RATE,ESTIMATED mL/min | | CENTER - | | | /[id number] than 60 | | LABORATORY | | | Chronic kidney | | | | | disease,if found over a | | | | | 3-month period.Less than | | | | | 15 Kidney | | | | | failureFor | | | | | Americans,multiply the | | | | | calculated GFR by 1.21. | | | | | | | | + + + + + | CALCIUM | 9.1 | 8.3 - 10.5 mg/dL | [facility] | | | | | [facility] | | | | | CENTER - | | | | | LABORATORY | + + + + + | BUN/CREA | 12.5 | | [facility] | | | | | [facility] | | | | | CENTER - | | | | | LABORATORY | + + + + + + + | Specimen | + + | Blood | + + + + + + + | Performing | Address | City/State/Zipcode | Phone Number | | Organization | | | | + + + + + | [facility] | [address] | [place], [place] | [phone] | | [facility] | | [address] | | | - LABORATORY | | | | + + + + + | [facility] | [address] | [place] | | | [facility] | | [address] | | | - LABORATORY | | | | + + + + + from Last 3 Months Insurance + +--------+ +--------+ +---------+ | Payer | Benefi | Subscriber | Type | Phone | Address | | | t Plan | ID | | | | | | / | | | | | | | Group | | | | | + +--------+ +--------+ +---------+ | MEDICARE | MEDICA | [id number] | Medica | [phone] | | | RE | | re | [phone] | | | | PART A | | | | | | | AND B | | | | | + +--------+ +--------+ +---------+ | [employer] | TRANSA | [id number] | Indemn | | | | INSURANCE | MERICA | | ity | | | | | LIFE | | | | | | | MS | | | | | + +--------+ +--------+ +---------+ + +--------+ +--------+ + + | Guarantor Name | Accoun | Relation to | Date | Phone | Billing Address | | | t Type | Patient | of | | | | | | | | | | + +--------+ +--------+ + + | ENRRIQUE SIERRA | Person | Self [birth year] | Home: | [address] | | | al/Fam | | 1940 | [phone] [place] [address] | | | sushil | | | 1940 | | + +--------+ +--------+ + +
--- OUTSIDE RECORDS SUMMARY | ~2018-04-28 | XMS | Clinical Summary ---
Demographics + + + | Address | [address] | | | [place] [address] | + + + | Home Phone | | + + + | Preferred Language | Unknown | + + + | Marital Status | | + + + | Protestant Affiliation | Unknown | + + + | Race | Unknown | + + + | Ethnic Group | Unknown | + + + Author + + + | Author | [facility] | + + + | Organization | [facility] | + + + | Address | Unknown | + + + | Phone | Unavailable | + + + Support + + + + + | Name | Relationship | Address | Phone | + + + + + | Eleanor Marie | ECON | [address] | | | | | [place] | | | | | [address] | | + + + + + Care Team Providers + +------+ + | Care Calibration Technician Name | Role | Phone | + +------+ + | Carlos Suggs MD | PP | Unavailable | + +------+ + Allergies No Known Allergies Current Medications + + +--------+---------+------+------+-------+ | Prescription | Sig. | Disp. | Refills | Star | End | Statu | | | | | | t | Date | s | | | | | | Date | | | + + +--------+---------+------+------+-------+ | aspirin 81 MG | Take 81 mg by mouth | | | | | Activ | | tablet | daily. | | | | | e | + + +--------+---------+------+------+-------+ | atenolol | Take 50 mg by mouth | | | | | Activ | | (TENORMIN) 25 MG | daily. | | | | | e | | tablet | | | | | | | + + +--------+---------+------+------+-------+ | niacin 500 MG | Take 1,000 mg by | | | | | Activ | | tablet | mouth nightly. | | | | | e | + + +--------+---------+------+------+-------+ | isosorbide | Take 30 mg by mouth | | | | | Activ | | mononitrate (IMDUR) | daily. | | | | | e | | 30 MG 24 hr tablet | | | | | | | + + +--------+---------+------+------+-------+ | traZODone | Take 200 mg by mouth | | | | | Activ | | (DESYREL) 100 MG | nightly. | | | | | e | | tablet | | | | | | | + + +--------+---------+------+------+-------+ | ipratropium | Inhale 1 puff into | | | | | Activ | | (ATROVENT HFA) 17 | the lungs every 6 | | | | | e | | MCG/ACT inhaler | (six) hours. | | | | | | + + +--------+---------+------+------+-------+ | budesonide | Take 0.5 mg by | | | | | Activ | | (PULMICORT) 0.5 | nebulization 2 (two) | | | | | e | | MG/2ML nebulizer | times daily. 0.5 mg | | | | | | | suspension | = 2 mls | | | | | | + + +--------+---------+------+------+-------+ | furosemide (LASIX) | Take 40 mg by mouth | | | | | Activ | | 40 MG tablet | daily. | | | | | e | + + +--------+---------+------+------+-------+ | omeprazole | Take 20 mg by mouth | | | | | Activ | | (PRILOSEC) 20 MG | 2 (two) times daily. | | | | | e | | capsule | | | | | | | + + +--------+---------+------+------+-------+ | potassium chloride | Take 10 mEq by mouth | | | | | Activ | | (K-DUR) 10 MEQ | daily. | | | | | e | | tablet | | | | | | | + + +--------+---------+------+------+-------+ | zolpidem (AMBIEN) | Take 10 mg by mouth | | | | | Activ | | 10 MG tablet | nightly as needed | | | | | e | | | for Sleep. | | | | | | + + +--------+---------+------+------+-------+ | atorvastatin | Take 1 tablet by | 30 | 0 | 10/0 | | Activ | | (LIPITOR) 10 MG | mouth nightly. | tablet | | 2/20 | | e | | tabletIndications: | | | | 17 | | | | Coronary artery | | | | | | | | disease involving | | | | | | | | coronary bypass | | | | | | | | graft of [place] | | | | | | | | heart with angina | | | | | | | | pectoris (HCC) | | | | | | | + + +--------+---------+------+------+-------+ | warfarin | Take 1 tablet by | 30 | 0 | 10/0 | | Activ | | (COUMADIN) 5 MG | mouth Once | tablet | | 3/20 | | e | | tablet | daily-Coumadin. | | | 17 | | | + + +--------+---------+------+------+-------+ | Magnesium Chloride | Take 1 tablet by | 90 | 0 | 10/0 | | Activ | | (MAG DELAY) 64 MG | mouth daily. | tablet | | 2/20 | | e | | CR tablet | | | | 17 | | | + + +--------+---------+------+------+-------+ Active Problems + + + | Problem | Noted Date | + + + | Acute on chronic respiratory failure (HCC) | 05/11/2017 | + + + | HCAP (healthcare-associated pneumonia) | 05/11/2017 | + + + | COPD (chronic obstructive pulmonary disease) | 05/11/2017 | + + + | Essential hypertension, benign | 05/11/2017 | + + + | CAD (coronary artery disease) | 05/11/2017 | + + + | Carotid artery disease (HCC) | 05/11/2017 | + + + | S/P placement of cardiac pacemaker | 05/11/2017 | + + + | Chronic diastolic congestive heart failure (HCC) | 05/11/2017 | + + + | Acute renal failure superimposed on stage 3 chronic kidney | 05/11/2017 | | disease (HCC) | | + + + | Acute respiratory failure with hypoxia (HCC) | 05/11/2017 | + + + | Sepsis (HCC) | 05/11/2017 | + + + Encounters +--------+ + + + + | Date | Type | Specialty | Care Team | Description | +--------+ + + + + | 03/12/ | Emergency | | Jackie Rodriguez, | 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, | | | | | | unspecified spinal | | | | | | osteoarthritis | | | | | | complication status | | | | | | (Primary Dx) | +--------+ + + + + from Last 3 Months Immunizations + + + + | Name | Dates Previously Given | Next Due | + + + + | INFLUENZA PF, | 05/12/2017 | | | QUADRIVALENT | | | | (PED/ADOL/ADULT) | | | + + + + | Pneumococcal | 05/12/2017 | | | Polysaccharide | | | | 23-valent | | | + + + + Social History + +-------+ +--------+ + | Tobacco Use | Types | Packs/Day | Years | Date | | | | | Used | | + +-------+ +--------+ + | Former Smoker | | | | Quit: 05/11/1990 | + +-------+ +--------+ + + +---+---+---+ | Smokeless Tobacco: | | | | | Never Used | | | | + +---+---+---+ + + +---------+ + | Alcohol Use | Drinks/We | oz/Week | Comments | | | ek | | | + + +---------+ + | No | | | | + + +---------+ + + + + | Sex Assigned at | Date Recorded | | | | + + + | Not on file | | + + + Last Filed Vital Signs + + + + | Vital Sign | Reading | Time Taken | + + + + | Blood Pressure | 123/59 | 03/12/2018 2:34 PM PDT | + + + + | Pulse | 69 | 03/12/2018 2:34 PM PDT | + + + + | Temperature | 36.8 C (98.3 F) | 03/12/2018 2:34 PM PDT | + + + + | Respiratory Rate | 18 | 03/12/2018 2:34 PM PDT | + + + + | Oxygen Saturation | 96% | 03/12/2018 2:34 PM PDT | + + + + | Inhaled Oxygen | - | - | | Concentration | | | + + + + | Weight | 99.8 kg (220 lb) | 03/12/2018 2:34 PM PDT | + + + + | Height | 180.3 cm (5' 11") | 05/30/2017 11:00 AM PDT | + + + + | Body Mass Index | 30.68 | 03/12/2018 2:34 PM PDT | + + + + Plan of Treatment + + + + + | Health Maintenance | Due Date | Last Done | Comments | + + + + + | Colon Cancer | | | | | Screening | 2 | | | | (Colonoscopy) | | | | + + + + + | Vaccine: Zoster (1 | | | | | of 2) | 2 | | | + + + + + | Statin Therapy | | | | | (optimal intensity) | 7 | | | + + + + [...] 65+ | | 06/05/2014 | | | High/Highest Risk | | | | + + + + + Procedures + +--------+ + + + | Procedure Name | Priori | Date/Time | Associated Diagnosis | Comments | | | ty | | | | + +--------+ + + + | URINALYSIS (REFLEX | STAT | 03/12/2018 | | Results for this | | TO | | 3:36 PM | | procedure are in the | | MICROSCOPIC/REFLEX | | PDT | | results section. | | TO CULTURE) | | | | | + +--------+ + + + | ED INFORMATION | Routin | 03/12/2018 | | Results for this | | EXCHANGE | e | 2:34 PM | | procedure are in the | | | | PDT | | results section. | + +--------+ + + + from Last 3 Months Results Urinalysis (reflex to microscopic/reflex to culture) (03/12/2018 3:36 PM) + + + + + | Component | Value | Ref Range | Performed At | + + + + + | COLOR UA | YELLOW | | [facility] | + + + + + | CLARITY | CLEAR | | [facility] | + + + + + | Specific [place], UA | 1.020 | 1.002 - 1.030 | [facility] | + + + + + | LEUKOCYTE ESTERASE | NEGATIVE | NEGATIVE | [facility] | + + + + + | NITRITE | NEGATIVE | NEGATIVE | [facility] | + + + + + | UROBILINOGEN | 2.0 (H) | <1.1 mg/dL | [facility] | + + + + + | PROTEIN | NEGATIVE | NEGATIVE mg/dL | [facility] | + + + + + | PH,URINE | 5.0 | 5.0 - 8.0 | [facility] | + + + + + | BLOOD | NEGATIVE | NEGATIVE | [facility] | + + + + + | KETONES | NEGATIVE | NEGATIVE mg/dL | [facility] | + + + + + | BILIRUBIN | NEGATIVE | NEGATIVE | [facility] | + + + + + | GLUCOSE | NEGATIVEComment: Testing | NEGATIVE mg/dL | [facility] | | | performed at [facility];[address] | | | | | [address];[place] | | | | | [address] | | | + + + + + + + | Specimen | + + | Urine - Urine, Clean | | Catch | + + + + + + + | Performing | Address | City/State/Zipcode | Phone Number | | Organization | | | | + + + + + | [facility] | [address] | [facility] [address] | | + + + + + ED INFORMATION EXCHANGE (03/12/2018 2:34 PM) + + + | Narrative | Performed At | + + + | [id number] [id number] This patient has registered at the | ED [facility] For more | INFORMATION | | information visit: | EXCHANGE | | [email or web address] | | | [id number] Security Events No recent Security Events currently on file | | | ED Care Guidelines There are currently no ED Care Guidelines in | | | MIHIR for this patient. Please check your facility's medical records | | | system. Recent Emergency Department Visit Summary Admit Date | | | Facility [facility] State Type Major Type Diagnoses or Chief Complaint Feb | | | 2017 [facility]. [place] Emergency Emergency | | | Back Pain Mar 06, 2018 [facility]. [place] | | | Emergency Emergency back pain Strain of muscle, | | | fascia and tendon of lower back, initial encounter E.D. | | | Visit Count (12 mo.) Facility Visits Low Acuity [facility] | | | [facility] 2 0 [facility] 2 0 [facility] | | | [facility] 3 0 Total 7 0 Note: Visits indicate total known | | | visits. Medicaid Low Acuity Dx are the number of primary diagnoses on | | | the Medicaid's Low Acuity dx list. Recent Inpatient Visit | | | Summary No recorded inpatient visits. PDMP Report PDMP query | | | found no report. [!] Patient is on [facility] Provider [facility] | | | Type Phone Service Dates DR CARLOS SUGGS MD Lock In ([phone]) | | | [phone] Current If this client is seen in your | | | facility, please notify the client's PCP and/or refer the client back | | | to their PCP for appropriate follow-up and management of care. If you | | | have any questions or concerns about the client or the [facility] program, | | | please feel free to contact us at ext. [phone] or go to | | | the [facility] website at [email or web address] for more information. | | | Additional Care Providers Provider [facility] Type Phone Fax Service | | | Dates SHANNAN STOUT MD Internal Medicine: Pulmonary Disease | | | Current CARLOS SUGGS MD Family Medicine | | | Current Known Aliases No known aliases. | | | Criteria met [facility] The above information is provided for the | | | sole purpose of patient treatment. Use of this information beyond the | | | terms of Data Sharing Memorandum of Understanding and License | | | Agreement is prohibited. In certain cases not all visits may be | | | represented. Consult the aforementioned facilities for additional | | | information. 2018 [facility] - [facility] | | | [place], [place] - [email or web address] | | + + + + + | Procedure Note | + + | Interface, Lab - 03/12/2018 2:36 PM PDT Formatting of this note may be different | | from the original.[id number] [id number] patient has registered at the [facility] | | [facility] Emergency Department For more information visit: | | [email or web address] Security | | EventsNo recent Security Events currently on fileED Care GuidelinesThere are currently | | no ED Care Guidelines in MIHIR for this patient. Please check your facility's medical | | records system.Recent Emergency Department Visit SummaryAdmit Date Facility [facility] State | | Type Major Type Diagnoses or Chief [facility] [place] [facility] | [facility] [place] [facility] | Emergency Emergency back pain Strain of muscle, fascia and tendon of lower back, | | initial encounter E.D. Visit Count (12 mo.)Facility Visits Low Acuity [facility] | | [facility] 2 0 [facility] 2 0 [facility] 3 0 | | Total 7 0 Note: Visits indicate total known visits. Medicaid Low Acuity Dx are the | | number of primary diagnoses on the Medicaid's Low Acuity dx list. Recent Inpatient | | Visit SummaryNo recorded inpatient visits. PDMP ReportPDMP query found no report.[!] | | Patient is on [place] [facility] Type Phone Service Dates DR CARLOS SUGGS MD | | Lock In Current If this client is seen in your facility, | | please notify the client's PCP and/or refer the client back to their PCP for | | appropriate follow-up and management of care. If you have any questions or concerns | | about the client or the [facility] program, please feel free to contact us at | | ext. [phone] or go to the [facility] website at [email or web address] for more | | information. Additional Care ProvidersProvider [facility] Type Phone Fax Service Dates | | SHANNAN STOUT MD Internal Medicine: Pulmonary Disease Current CARLOS SUGGS , | | Family Medicine Current Known AliasesNo known aliases. | | Criteria met PRCThe above information is provided for the sole purpose of patient | | treatment. Use of this information beyond the terms of Data Sharing Memorandum of | | Understanding and License Agreement is prohibited. In certain cases not all visits may | | be represented. Consult the aforementioned facilities for additional information. 2018 | | [facility]. [place], [place] - | | [email or web address] | |No recorded inpatient visits. | | | |PDMP Report | |PDMP query found no report. | | | |[!] Patient is on [place] [facility] | |Provider [facility] Type Phone Service Dates | |DR CARLOS SUGGS MD Lock In Current | |If this client is seen in your facility, please notify the client's PCP and/or refer the cl ient back to their PCP for appropriate follow-up and management of care. If you have any que stions or concerns about the client | |or the [facility] program, please feel free to contact us at ext. [phone] or go to [facility] website at [email or web address] for more information. | | | |Additional Care Providers | |Provider [facility] Type Phone Fax Service Dates | |SHANNAN STOUT MD Internal Medicine: Pulmonary Disease Current | |CARLOS SUGGS MD Family Medicine Current | | | |Known Aliases | |No known aliases. | |Criteria met | | | | [facility] | | | |The above information is provided for the sole purpose of patient treatment. Use of this in formation beyond the terms of Data Sharing Memorandum of Understanding and License Agreement is prohibited. In | |certain cases not all visits may be represented. Consult the aforementioned facilities for additional information. | |2018 [facility] - [place], [place] - [email or web address] | + + + +---------+ + + | Performing | Address | City/State/Zipcode | Phone Number | | Organization | | | | + +---------+ + + | ED INFORMATION | | | | | EXCHANGE | | | | + +---------+ + + from Last 3 Months Insurance + +--------+ +------+-------+ + | Payer | Benefi | Subscriber | Type | Phone | Address | | | t Plan | ID | | | | | | / | | | | | | | Group | | | | | + +--------+ +------+-------+ + | MEDICARE | MEDICA | [id number] | | | [address] | | | RE | | | | [place] [phone] | | | IP-OP | | | | | + +--------+ +------+-------+ + | COMMERCIAL OTHER | TRANSA | [id number] | | | | | | [employer] | | | | | | | LIFE | | | | | + +--------+ +------+-------+ + + +--------+ +--------+ + + | Guarantor Name | Accoun | Relation to | Date | Phone | Billing Address | | | t Type | Patient | of | | | | | | | | | | + +--------+ +--------+ + + | MARI MARIE | Person | Self [birth year] | Home: | [address] | | | al/Fam | | 1939 | [phone] | [place] | | | sushil | | | 1939 | [phone] | + +--------+ +--------+ + +
--- OUTSIDE RECORDS SUMMARY | ~2018-04-28 | XMS | Encounter Summary ---
Demographics + + + | Address | [address] | | | [place] [address] | + + + | Home Phone | | + + + | Preferred Language | Unknown | + + + | Marital Status | | + + + | Buddhism Affiliation | Unknown | + + + | Race | Unknown | + + + | Ethnic Group | Unknown | + + + Author + + + | Author | [facility] | | | and [place] | + + + | Organization | [facility] | | | and [place] | + + + | Address | Unknown | + + + | Phone | Unavailable | + + + Support + + + + + | Name | Relationship | Address | Phone | + + + + + | Roz Sierra | ECON | [address] | | | | | [place] | | | | | [address] | | + + + + + Care Team Providers + +------+ + | Care Tenant Relations Coordinator Name | Role | Phone | + +------+ + | Carlos Suggs MD | PCP | | + +------+ + Reason for Visit + + + | Reason | Comments | + + + | Back Pain | | + + + | Leg Pain | | + + + Encounter Details +--------+ + + + + | Date | Type | Department | Care Team | Description | +--------+ + + + + | 03/16/ | Telephone | [facility] | Carlos Suggs, | Back Pain; Leg Pain | | 2018 | | [facility] [place] | [address] | | | | | [address] | [place] | | | | | [place] | [address] | | | | | [address] | | | | | | [phone] | | | +--------+ + + + + Social History + [...] on file | | + + + as of this encounter Functional Status + + + + | Functional Status | Response | Date of Assessment | + + + + | Are you deaf or do you have serious | No | 08/28/2015 | | difficulty hearing? | | | + + + + | Are you blind or do you have serious | No | 08/28/2015 | | difficulty seeing, even when wearing | | | | glasses? | | | + + + + | Do you have serious difficulty walking or | No | 08/28/2015 | | climbing stairs? (5 years old or older) | | | + + + + | Do you have difficulty dressing or bathing? | No | 08/28/2015 | | (5 years old or older) | | | + + + + | Because of a physical, mental, or emotional | No | 08/28/2015 | | condition, do you have difficulty doing | | | | errands alone such as visiting a doctor's | | | | office or shopping? [15 years old or | | | | older)] | | | + + + + + + + + | Cognitive Status | Response | Date of Assessment | + + + + | Because of a physical, mental, or emotional | No | 08/28/2015 | | condition, do you have serious difficulty | | | | concentrating, remembering, or making | | | | decisions? (5 years old or older) | | | + + + + as of this encounter Plan of Treatment +--------+---------+ + + + | Date | Type | Specialty | Care Team | Description | +--------+---------+ + + + | 06/01/ | Office | Cardiology | Genoveva Mccurdy, | | | 2017 | Visit | | JANINE Fernandez | | | | | | [place] | | | | | | [phone] | | | | | | | | +--------+---------+ + + + | 06/22/ | Office | Pulmonology | | | | 2017 | Visit | | | | +--------+---------+ + + + | 09/15/ | Office | Family Medicine | Carlos Suggs, | | | 2018 | Visit | | MD [address] | | | | | | [place] | | | | | | [address] | | | | | | | | +--------+---------+ + + + as of this encounter Visit Diagnoses Not on filein this encounter"
--- OUTSIDE RECORDS SUMMARY | ~2018-04-28 | XMS | Encounter Summary ---
Demographics + + + | Address | [address] | | | [place] [address] | + + + | Home Phone | | + + + | Preferred Language | Unknown | + + + | Marital Status | | + + + | Baptism Affiliation | Unknown | + + + | Race | Unknown | + + + | Ethnic Group | Unknown | + + + Author + + + | Author | [facility] | + + + | Organization | [facility] | + + + | Address | Unknown | + + + | Phone | Unavailable | + + + Support + + + + + | Name | Relationship | Address | Phone | + + + + + | Eleanor Sierra | ECON | [address] | | | | | [place] | | | | | [address] | | + + + + + Care Team Providers + +------+ + | Care Ux Information Architect Name | Role | Phone | + +------+ + | Carlos Suggs MD | PCP | Unavailable | + +------+ + Reason for Referral Physical Medicine (Routine) + + + + + + + | Status | Reason | Specialty | Diagnoses / | Referred By | Referred To | | | | | Procedures | Contact | Contact | + + + + + + + | New Request | Specialty | Physical | | Quin | Hannah | | | Services | Therapy | | Claribel Bonilla | Physical | | | Required | | | [facility] [address] | [address] | | | | | | [place] [address] | [address]. | | | | | | [place], [place] | [place], [place] | | | | | | [address] | [address] Phone: | | | | | | Phone: | [phone] | | | | | | [phone] | Fax: | | | | | | Fax: | [phone] | | | | | | [phone] | | + + + + + + + Reason for Visit + + + | Reason | Comments | + + + | Back Pain | had CT done on Tuesday | + + + Encounter Details +--------+ + + + + | Date | Type | Department | Care Team | Description | +--------+ + + + + | 03/12/ | Emergency | [facility] | Jackie Rodriguez, | Osteoarthritis of | | 2018 | | [facility] | DO [address] | lumbar spine, | | | | Emergency Department | [place] [address] | unspecified spinal | | | | [address] | [phone] | osteoarthritis | | | | [place] [address] | | complication status | | | | [phone] | | (Primary Dx) | +--------+ + + + + Social [...] + + + as of this encounter Last Filed Vital Signs + + + [...] + + + + | Height | - | - | + + + + | Body Mass Index | 30.68 | 03/12/2018 2:34 PM PDT | + + + + in this encounter Discharge Instructions The following attachments cannot be sent through Care Everywhere.Degenerative Disk Disease ([place])in this encounter Medications at Time of Discharge + + +--------+---------+ + + | Medication | Sig. | Disp. | Refills | Start | End Date | | | | | | Date | | + + +--------+---------+ + + | aspirin 81 MG | Take 81 mg by mouth | | | | | | tablet | daily. | | | | | + + +--------+---------+ + + | atenolol | Take 50 mg by mouth | | | | | | (TENORMIN) 25 MG | daily. | | | | | | tablet | | | | | | + + +--------+---------+ + + | budesonide | Take 0.5 mg by | | | | | | (PULMICORT) 0.5 | nebulization 2 (two) | | | | | | MG/2ML nebulizer | times daily. 0.5 mg | | | | | | suspension | = 2 mls | | | | | + + +--------+---------+ + + | furosemide (LASIX) | Take 40 mg by mouth | | | | | | 40 MG tablet | daily. | | | | | + + +--------+---------+ + + | ipratropium | Inhale 1 puff into | | | | | | (ATROVENT HFA) 17 | the lungs every 6 | | | | | | MCG/ACT inhaler | (six) hours. | | | | | + + +--------+---------+ + + | isosorbide | Take 30 mg by mouth | | | | | | mononitrate (IMDUR) | daily. | | | | | | 30 MG 24 hr tablet | | | | | | + + +--------+---------+ + + | niacin 500 MG | Take 1,000 mg by | | | | | | tablet | mouth nightly. | | | | | + + +--------+---------+ + + | omeprazole | Take 20 mg by mouth | | | | | | (PRILOSEC) 20 MG | 2 (two) times daily. | | | | | | capsule | | | | | | + + +--------+---------+ + + | potassium chloride | Take 10 mEq by mouth | | | | | | (K-DUR) 10 MEQ | daily. | | | | | | tablet | | | | | | + + +--------+---------+ + + | traZODone | Take 200 mg by mouth | | | | | | (DESYREL) 100 MG | nightly. | | | | | | tablet | | | | | | + + +--------+---------+ + + | zolpidem (AMBIEN) | Take 10 mg by mouth | | | | | | 10 MG tablet | nightly as needed | | | | | | | for Sleep. | | | | | + + +--------+---------+ + + | atorvastatin | Take 1 tablet by | 30 | 0 | 05/16/ | | | (LIPITOR) 10 MG | mouth nightly. 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 | tablet | | 17 | | | CR tablet | | | | | | + + +--------+---------+ + + | warfarin | Take 1 tablet by | 30 | 0 | 05/17/20 | | | (COUMADIN) 5 MG | mouth Once | tablet | | 17 | | | tablet | daily-Coumadin. | | | | | + + +--------+---------+ + + as of this encounter Plan of Treatment + +--------+ + + | Name | Priori | Associated Diagnoses | Order Schedule | | | ty | | | + +--------+ + + | Ambulatory referral to Physical | Routin | | Ordered: 03/12/2018 | | Therapy, Eval and Treat | e | | | + +--------+ + + as of this encounter Procedures + +--------+ + + + | [...] section. | + +--------+ + + + in this encounter Results Urinalysis (reflex to microscopic/reflex to culture) (03/12/2018 3:36 PM) + + + + + | Component | Value | Ref Range | Performed At | + + + + + | COLOR UA | YELLOW | | [facility] | + + + + + | CLARITY | CLEAR | | [facility] | + + + + + | Specific [place], UA | 1.020 | 1.002 - 1.030 | [facility] | + + + [...] KETONES | NEGATIVE | NEGATIVE mg/dL | [facility] | + + + + + | BILIRUBIN | NEGATIVE | NEGATIVE | [facility] | + + + + + | GLUCOSE | NEGATIVEComment: Testing | NEGATIVE mg/dL | [facility] | | | performed at [facility] [place];[address] | | | | | [address];[place] | | | | | [address] | | | + + + + + + + | Specimen | + + | Urine - Urine, Clean | | Catch | + + + + + + + | Performing | Address | City/State/Zipcode | Phone Number | | Organization | | | | + + + + + | [facility] | [address] | [place] [address] | | + + + + + ED INFORMATION EXCHANGE (03/12/2018 2:34 PM) + + + | Narrative | Performed At | + + + | [id number] This patient has registered at the | ED | | [facility] Emergency Department For more | INFORMATION | | information visit: | EXCHANGE | | [email or web address] | | | [email or web address] Security Events No recent Security Events currently on file | | | ED Care Guidelines There are currently no ED Care Guidelines in | | | MIHIR for this patient. Please check your facility's medical records | | | system. Recent Emergency Department Visit Summary Admit Date | | | Facility City State Type Major Type Diagnoses or Chief Complaint Feb | | [facility] [place] [place] [facility] | | | [facility] [address] [facility] [place] [place] | | | Emergency Emergency back pain Strain of muscle, | | | fascia and tendon of lower back, initial encounter E.D. | | | Visit Count (12 mo.) Facility Visits Low Acuity [facility] | | | [facility] 2 0 [facility] 2 0 [facility]. | | | [facility] 3 0 Total 7 0 Note: Visits indicate total known | | | visits. Medicaid Low Acuity Dx are the number of primary diagnoses on | | | the Medicaid's Low Acuity dx list. Recent Inpatient Visit | | | Summary No recorded inpatient visits. PDMP Report PDMP query | | | found no report. [!] Patient is on [facility] Provider [facility] | | | Type Phone Service Dates DR CARLOS SUGGS MD [place] ([phone] | | | [phone] Current If this client is seen in your | | | facility, please notify the client's PCP and/or refer the client back | | | to their PCP for appropriate follow-up and management of care. If you | | | have any questions or concerns about the client or the [facility] program, | | | please feel free to contact us at ext. [phone] or go to | | | the [facility] website at [email or web address] for more information. | | | Additional Care Providers Provider [facility] Type Phone Fax Service | | | Dates SHANNAN STOUT MD Internal Medicine: Pulmonary Disease | | | Current CARLOS SUGGS MD Family Medicine | | | Current Known Aliases No known aliases. | | | Criteria met [facility] The above information is provided for the | | | sole purpose of patient treatment. Use of this information beyond the | | | terms of Data Sharing Memorandum of Understanding and License | | | Agreement is prohibited. In certain cases not all visits may be | | | represented. Consult the aforementioned facilities for additional | | | information. 2018 [facility] | | | [place], [place] - [email or web address] | | + + + + + | Procedure Note | + + | Interface, Lab - 03/12/2018 2:36 PM PDT Formatting of this note may be different | | from the original.[id number] [id number] patient has registered at the [facility] | | [facility] Emergency Department For more information visit: | | [email or web address] Security | | EventsNo recent Security Events currently on fileED Care GuidelinesThere are currently | | no ED Care Guidelines in MIHIR for this patient. Please check your facility's medical | | records system.Recent Emergency Department Visit SummaryAdmit Date Facility [facility] | | Type Major Type Diagnoses or Chief Complaint Mar 12, 2018 [facility] [place]. [place] | | Emergency [facility] [place] [facility] | Emergency Emergency back pain Strain of muscle, fascia and tendon of lower back, | | initial encounter E.D. Visit Count (12 mo.)Facility Visits Low Acuity [facility] | | [facility] 2 0 [facility] 2 0 [facility] 3 0 | | Total 7 0 Note: Visits indicate total known visits. Medicaid Low Acuity Dx are the | | number of primary diagnoses on the Medicaid's Low Acuity dx list. Recent Inpatient | | Visit SummaryNo recorded inpatient visits. PDMP ReportPDMP query found no report.[!] | | Patient is on [place] [facility] Type Phone Service Dates DR CARLOS SUGGS MD | | [place] Current If this client is seen in your facility, | | please notify the client's PCP and/or refer the client back to their PCP for | | appropriate follow-up and management of care. If you have any questions or concerns | | about the client or the [facility] program, please feel free to contact us at | | ext. [phone] or go to the [facility] website at [email or web address] for more | | information. Additional Care ProvidersProvider [facility] Type Phone Fax Service Dates | | [...] facilities for additional information. 2018 | | [facility] [place], [place] - | | [email or web address] | |No recorded inpatient visits. | | | |PDMP Report | |PDMP query found no report. | | | |[!] Patient is on [facility] | |Provider [facility] Type Phone Service Dates | |DR CARLOS SUGGS MD [facility] In Current | |If this client is seen in your facility, please notify the client's PCP and/or refer the cl ient back to their PCP for appropriate follow-up and management of care. If you have any que stions or concerns about the client | |or the [facility] program, please feel free to contact us at ext. [phone] to [facility] website at [email or web address] for more information. | | | |Additional Care Providers | |Provider [facility] Type Phone Fax Service Dates | |SHANNAN [...] aforementioned facilities for additional information. | |2018 [employer] - [place], [place] - | + + + +---------+ + + | Performing | Address | City/State/Zipcode | Phone Number | | Organization | | | | + +---------+ + + | ED INFORMATION | | | | | EXCHANGE | | | | + +---------+ + + in this encounter Visit Diagnoses + + | Diagnosis | + + | Osteoarthritis of lumbar spine, unspecified spinal osteoarthritis complication status - | | Primary | + + Admitting Diagnoses + + | Diagnosis | + + | Osteoarthritis of lumbar spine, unspecified spinal osteoarthritis complication status | + +"
--- OUTSIDE RECORDS SUMMARY | ~2018-04-28 | XMS | Encounter Summary ---
Demographics + + + | Address | [address] | | | [place] [address] | + + + | Home Phone | | + + + | Preferred Language | Unknown | + + + | Marital Status | | + + + | Buddhist Affiliation | Unknown | + + + | Race | Unknown | + + + | Ethnic Group | Unknown | + + + Author + + + | Author | [facility] | | | and [place] | + + + | Organization | [facility] | | | and [place] | + + + | Address | Unknown | + + + | Phone | Unavailable | + + + Support + + + + + | Name | Relationship | Address | Phone | + + + + + | Roz Sierra | ECON | [address] | | | | | [place] | | | | | [address] | | + + + + + Care Team Providers + +------+ + | Care Tableau Analyst Name | Role | Phone | + +------+ + | Carlos Suggs MD | PCP | | + +------+ + Reason for Visit + + + | Reason | Comments | + + + | Medication Refill | | + + + Encounter Details +--------+--------+ + + + | Date | Type | Department | Care Team | Description | +--------+--------+ + + + | 03/06/ | Refill | [facility] | Carlos Suggs, | Medication Refill | | 2017 | | [facility] | [address] | | | | | [address] | [place] | | | | | [place] | [address] | | | | | [address] | | | | | | [phone] | | | +--------+--------+ + + + Social History + + [...] [place] | | | | | | [address] | | | | | | | [...] DEE | | | | | | [phone] | | | | | | | | +--------+---------+ + + + as of this encounter Visit Diagnoses Not on filein this encounter"
--- OUTSIDE RECORDS SUMMARY | ~2018-04-28 | XMS | Encounter Summary ---
Demographics + + + | Address | [address] | | | [place] [address] | + + + | Home Phone | | + + + | Preferred Language | Unknown | + + + | Marital Status | | + + + | Hinduism Affiliation | Unknown | + + + | Race | Unknown | + + + | Ethnic Group | Unknown | + + + Author + + + | Author | [facility] | | | and [place] | + + + | Organization | [facility] | | | and [place] | + + + | Address | Unknown | + + + | Phone | Unavailable | + + + Support + + + + + | Name | Relationship | Address | Phone | + + + + + | Roz Sierra | ECON | [address] | | | | | [place] | | | | | [address] | | + + + + + Care Team Providers + +------+ + | Care Embosser Apprentice Name | Role | Phone | + +------+ + | Carlos Suggs MD | PCP | | + +------+ + Reason for Visit + + + | Reason | Comments | + + + | Back Pain | | + + + Encounter Details +--------+ + + + + | Date | Type | Department | Care Team | Description | +--------+ + + + + | 03/06/ | Emergency | [facility] | Emerson Buchanan MD | Strain of lumbar | | 2018 | | [facility] | [address] | region, initial | | | | CENTER [address] | [place], [place] | encounter (Primary | | | | [place], [place] | [address] | Dx) | | | | [address] | | | | | | [phone] | | | +--------+ + + + [...] + + + | Blood Pressure | 109/91 | 03/06/20181202 PDT | + + + + | Pulse | 66 | 03/06/20181211 PDT | + + + + | Temperature | 35.4 C (95.8 F) | 03/06/2018951 PDT | + + + + | Respiratory Rate | 16 | 03/06/2018951 PDT | + + + + | Oxygen Saturation | 99% | 03/06/20181211 PDT | + + + + | Inhaled Oxygen | - | - | | Concentration | | | + + + + | Weight | 103.4 kg (228 lb) | 03/06/2018951 PDT | + + + + | Height | 180.3 cm (5' 11") | 03/06/2018951 PDT | + + + + | Body Mass Index | 31.8 | 03/06/2018951 PDT | + + + + in this encounter Functional Status + + + [...] + + + as of this encounter Discharge Instructions Emerson Buchanan MD - 03/06/2018Pain medication as needed Slowly resume normal activities as tolerated Return for worsening symptoms, not improving, the new complainin this encounter Medications at Time of Discharge + + + +---------+ + + | Medication | Sig. | Disp. | Refills | Start | End Date | | | | | | Date | | + + + +---------+ + + | atorvaSTATin | TAKE 1 TABLET BY | 90 | 3 | 09/14/19 | | | (LIPITOR) 20 mg | MOUTH EVERY EVENING | tablet | | 18 | | | tablet | | | | | | + + + +---------+ + + | formoterol | Take 2 mLs by | 120 mL | 11 | 12/29/19 | | | (PERFOROMIST) 20 | nebulization Every | | | 17 | | | MCG/2ML nebulizer | 12 hours. Dx: J43.9 | | | | | | solutionIndications: | SIENNA: 99 months Send | | | | | | Chronic obstructive | to [facility] | | | | | | pulmonary disease, | | | | | | | unspecified COPD | | | | | | | type ([facility]) | | | | | | + + + +---------+ + + | furosemide (LASIX) | TAKE 1 TABLET BY | 90 | 1 | 12/10/19 | | | 40 mg tablet | MOUTH EVERY DAY | tablet | | 18 | | + + + +---------+ + + | isosorbide | TAKE 1 TABLET BY | 90 | 1 | 11/10/19 | | | mononitrate (IMDUR) | MOUTH EVERY MORNING | tablet | | 18 | | | 30 mg ER tablet | | | | | | + + + +---------+ + + | magnesium chloride | Take 64 mg by mouth | | | 05/16/20 | | | (MAG64) 64 mg CR | Daily. | | | 17 | | | tablet | | | | | | + + + +---------+ + + | metoprolol | TAKE 1 TABLET BY | 90 | 1 | 12/10/19 | | | succinate | MOUTH EVERY DAY | tablet | | 18 | | | (TOPROL-XL) 100 mg | | | | | | | ER tablet | | | | | | + + + +---------+ + + | Multiple | Take 1 tablet by | | | | | | Vitamins-Minerals | mouth Daily. | | | | | | (THERA-M MULTIPLE | | | | | | | VITAMINS PO) | | | | | | + + + +---------+ + + | niacin 500 mg CR | 2 capsules by mouth | 180 | 1 | 12/05/19 | | | capsule | at night | capsule | | 13 | | + + + +---------+ + + | [place]-3 Fatty | Take 1,200 mg by | | | | | | Acids (FISH OIL) | mouth 2 times daily. 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 | | | | | | mg per tablet | | | | | | + + + +---------+ + + | oxygen | Inhale 3 L into the | | | 07/28/20 | | | | lungs continuous. | | | 16 | | | | Dispense portable | | | | | | | battery operated [...] to 87% | | | | | + + + +---------+ + + | PROAIR HFA 108 (90 | INHALE TWO PUFFS BY | 8.5 g | 5 | 01/29/20 | | | BASE) MCG/ACT | MOUTH INTO THE LUNGS | | | 16 | | | inhaler | EVERY SIX HOURS | | | | | | | NEEDED | | | | | + + + +---------+ + + | Respiratory | Use as directed with | 1 each | 0 | 08/27/19 | | | Therapy Supplies | nebulizer | | | 14 | | | (NEBULIZER | medication. Dx: 496 | | | | | | COMPRESSOR) KIT | SIENNA: [employer]. | | | | | + + + +---------+ + + | traZODone | TAKE 1 TO 2 TABLETS | 180 | 1 | 12/27/19 | | | (DESYREL) 100 mg | BY MOUTH EVERY NIGHT | tablet | | 18 | | | tablet | AT BEDTIME | | | | | + + + +---------+ + + | warfarin | TAKE 1 TABLET BY | 30 | 2 | 12/10/19 | | | (COUMADIN) 5 mg | MOUTH DAILY | tablet | | 18 | | | tablet | | | | | | + + + +---------+ + + | zolpidem (AMBIEN) | TAKE 1 TABLET BY | 90 | 1 | 03/03/20 | | | 10 mg tablet | MOUTH EVERY DAY | tablet | | 18 | | | | NEEDED | | | | | + + + +---------+ + + | potassium chloride | TAKE ONE TABLET BY | 90 | 0 | 12/27/19 | | | (MARYOR-CON) 10 mEq | MOUTH EVERY DAY | tablet | | 18 | 8 | | CR tablet | | | | | | + + + +---------+ + + as of this encounter Plan of Treatment +--------+---------+ + + + | Date | Type | Specialty | Care Team | Description | +--------+---------+ + + + | 06/01/ | Office | Cardiology | Genoveva Mccurdy, | | | 2017 | Visit | | J[facility] [address] | | | | | | St [place] | | | | | | [address] | | | | | | | [...] [place] | | | | | | [address] | | | | | | | | +--------+---------+ + + + + +--------+ + + | Name | Priori | Associated Diagnoses | Date/Time | | | ty | | | + +--------+ + + | ED INFORMATION EXCHANGE | Routin | | 03/06/2018 0948 PDT | | | e | | | + +--------+ [...] | | | ENRRIQUE | | | [id number] | | | [id number] | | | This | | | [...] | | | St. | | | [place] | | | y | | | [...] | | | ext. | | | [phone] | | | or go | | [...] | | | ation. | | | 2018 | | | Collec | | | [...] | [email or web address] | | | | +---+--------+ in this encounter Results Urinalysis with Microscopic with Culture if [...] + + + + + | Specific [place] | 1.008 | 1.001 - 1.030 | [...] ST. | | | Indicated | | [facility] | | | | | [...] | [address] | [place] | [phone] | | [facility] | | [address] | | | - LABORATORY | | | | + + + + + | [facility] | [address] | [place] | | | [facility] | | [address] | | | - LABORATORY | | | | + + + + + CT Lumbar Spine wo Contrast (03/06/2018 1052) + + + | Narrative | Performed At | + + + | TECHNIQUE: Noncontrast axial CT imaging was obtained through the | [facility] | | lumbar spine with coronal [...] | | | + +---------+ + + Extra Lavender Top Tube (03/06/2018 1014) + +-------+ + + | Component | Value | Ref Range | Performed At | + +-------+ + + | Extra Lavender Top | Done | | [facility] | | Tube | | | [facility] | | [...] + | [facility] | [address] | [place], [place] | [phone] | | [facility] | | [address] | | | - LABORATORY | | | | + + + + + | [facility] | [address] | [place], [place] | | | [facility] | | [address] | | | - LABORATORY | | | | + + + + + Extra Green Top Tube (03/06/2018 1014) + +-------+ + + | Component | Value | Ref Range | Performed At | + +-------+ + + | Extra Green Top Tube | Done | | [facility] | | | | | [facility] [...] + | [facility] | [address] | [place] | [phone] | | [facility] | | [address] | | | - LABORATORY | | | | + + + + + | [facility] | [address] | [place] | | | [facility] | | [address] | | | - LABORATORY | | | | + + + + + Extra Gold Top Tube (03/06/2018 1014) + +-------+ + + | Component | Value | Ref Range | Performed At | + +-------+ + + | EGDT | Done | | [facility] | | | | | [facility] | | | | | [...] + | [facility] | [address] | [place] | [phone] | | [facility] | | [address] | | | - LABORATORY | | | | + + + + + | [facility] | [address] | [place] | | | [facility] | | [address] | | | - LABORATORY | | | | + + + + + Protime INR (03/06/2018 1014) + + + + + | Component | Value | Ref Range | Performed At | + + + + + | Protime | 32.2 (H) | 11.3 - 13.9 seconds | [facility] | | | | | [facility] | | | | | CENTER - | | | | | LABORATORY | + + + + + | INR | 3.08 (H)Comment: Usual | 0.90 - 1.10 | [facility] | | | Oral Anticoagulation | [...] + | [facility] | [address] | [place] | [phone] | | [facility] | | [address] | | | - LABORATORY | | | | + + + + + | [facility] | [address] | [place], [place] | | | [facility] | | [address] | | | - LABORATORY | | [...] 1.20 | 0.60 - 1.30 mg/dL | [facility] | | Serum/Plasma | | | [facility] | | | | | CENTER - | | | | | LABORATORY | + + + + + | eGFR if not | 59 (L)Comment: | >=60 mL/min/1.73m2 | [facility] | | [facility] | GLOMERULAR FILTRATION | | [facility] | | | RATE,ESTIMATED mL/min | | CENTER - | | | /1.59x7Tgoe than 60 | | LABORATORY | | [...] 9.1 | 8.3 - 10.5 mg/dL | [facility] | | | | | [facility] | | | | | CENTER - | | | | | LABORATORY | + + + + + | BUN/CREA | 12.5 | | [facility] | | | | | [facility] | | | | | [...] | [address] | [place] | [phone] | | [facility] | | [address] | | | - LABORATORY | | | | + + + + + | [facility] | [address] | [place] | | | [facility] | | [address] | | | - LABORATORY | | | | + + + + + CBC w/ Auto Differential (03/06/2018 1014) + + + + + | Component | Value | Ref Range | Performed At | + + + + + | WBC | 12.5 (H) | 4.0 - 11.0 K/uL | [facility] | | | | | [facility] | | | | | CENTER - | | | | | LABORATORY | + + + + + | RBC | 4.99 | 4.30 - 5.70 M/uL | [facility] | | | | | [facility] | | | | | [...] [facility] | | | | | [facility] | | | | | [...] + | [facility] | [address] | [place] | [phone] | | [facility] | | [address] | | | - LABORATORY | | | | + + + + + | [facility] | [address] | [place] | | | [facility] | | [address] | | | - LABORATORY | | | | + + + + + in this encounter Visit Diagnoses + + | Diagnosis | + + | Strain of lumbar region, initial encounter - Primary | + + Administered Medications + +--------+ +--------+------+------+ | Medication Order | MAR | Action | Dose | Rate | Site | | | Action | Date | | | | + +--------+ +--------+------+------+ | HYDROmorphone (DILAUDID) | Given | | 0.5 mg | | | | injection 0.5 mg 0.5 mg, | | 8 10:19 | | | | | Intravenous, ONCE, 03/06/18 at | | PDT | | | | | 1000, For 1 dose | | | | | | + +--------+ +--------+------+------+ +---+---+ | | | +---+---+ + +-------+ +------+---+---+ | ondansetron (ZOFRAN) injection | Given | | 4 mg | | | | 4 mg 4 mg, Intravenous, ONCE, | | 8 10:19 | | | | | 03/06/18 at 1000, For 1 dose | | PDT | | | | + +-------+ +------+---+---+ +---+---+ | | | +---+---+ in this encounter
--- OUTSIDE RECORDS SUMMARY | ~2018-04-28 | XMS | Encounter Summary ---
Demographics + + + | Address | [address] | | | [place] [address] | + + + | Home Phone | | + + + | Preferred Language | Unknown | + + + | Marital Status | | + + + | Presybeterian Affiliation | Unknown | + + + | Race | Unknown | + + + | Ethnic Group | Unknown | + + + Author + + + | Author | [facility] | | | and [place] | + + + | Organization | [facility] | | | and [place] | + + + | Address | Unknown | + + + | Phone | Unavailable | + + + Support + + + + + | Name | Relationship | Address | Phone | + + + + + | Roz Sierra | ECON | [address] | | | | | [place] | | | | | [address] | | + + + + + Care Team Providers + +------+ + | Care Paint Roller Cover Machine Setter Name | Role | Phone | + [...] Pain | | 2018 | | [facility]IC[facility] | [address] | | | | | [address] | [place] | | | | | [place] | [address] | | | | | [address] | | | | | | [phone] | | | +--------+ + + + [...] [place] | | | | | | [id number] | | | | | | | [...] [place] | | | | | | [address] | | | | | | | | +--------+---------+ + + + as of this encounter Visit Diagnoses Not on filein this encounter"
--- OUTSIDE RECORDS SUMMARY | ~2018-04-28 | XMS | Encounter Summary ---
Demographics + + + | Address | [address] | | | [place] [address] | + + + | Home Phone | | + + + | Preferred Language | Unknown | + + + | Marital Status | | + + + | Restorationist Affiliation | Unknown | + + + | Race | Unknown | + + + | Ethnic Group | Unknown | + + + Author + + + | Author | [facility] | | | and [place] | + + + | Organization | [facility] | | | and [place] | + + + | Address | Unknown | + + + | Phone | Unavailable | + + + Support + + + + + | Name | Relationship | Address | Phone | + + + + + | Roz Sierra | ECON | [address] | | | | | [place] | | | | | [address] | | + + + + + Care Team Providers + +------+ + | Care High Speed Printer Operator Name | Role | Phone | + [...] + + | 03/06/ | Telephone | [facility] | Carlos Suggs Jack, | Back Pain | | 2018 | | [facility] | [address] | | | | | [address] | [place] | | | | | [place] | [address] | | | | | [address] | | | | | | [phone] | | | +--------+ + + + [...] [place] | | | | | | [address] | | | | | | | [...] [place] | | | | | | [address] | | | | | | | | +--------+---------+ + + + as of this encounter Visit Diagnoses Not on filein this encounter"
--- OUTSIDE RECORDS SUMMARY | ~2018-04-28 | XMS | Clinical Summary ---
Demographics + + + | Address | [address] | | | [place] [address] | + + + | Home Phone | | + + + | Preferred Language | Unknown | + + + | Marital Status | | + + + | Gnosticist Affiliation | Unknown | + + + | Race | Unknown | + + + | Ethnic Group | Unknown | + + + Author + + + | Author | [facility] | | | and [place] | + + + | Organization | [facility] | | | and [place] | + + + | Address | Unknown | + + + | Phone | Unavailable | + + + Support + + + + + | Name | Relationship | Address | Phone | + + + + + | Roz Sierra | ECON | [address] | | | | | [place] | | | | | [address] | | + + + + + Care Team Providers + +------+ + | Care History Tutor Name | Role | Phone | + [...] | | + + + +---------+------+------+-------+ | [place]-3 Fatty | Take 1,200 mg by | [...] | | | | | | | wainwright coronary | | | | | | | | artery of wainwright | | | | | | | [...] afib diagnosis during | | hospitalization at [facility] April 2017. | + + + + [...] IMPLANTED GENERATOR | | Medtronic Adapta ADDR01 [id number] 05/03/2012 RV LEAD Medtronic | | Active Bipolar CapSureFix 4076 [id number] 05/03/2012 A LEAD | | Medtronic Active Bipolar CapSureFix 4076 [id number] 05/03/2012 | + + + + + [...] minute (at 11 AM while working at [employer]).Status post Medtronic | | dual-chamber permanent pacemaker implantation 05/03/12 by | | [place] at [facility]. 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 Inability to [...] +---+ + + + | Overview: ANSHULU [id number] Decision | + + + +---+ + [...] minute (at 11 AM while working at [employer]). Status post | | Medtronic dual-chamber permanent pacemaker implantation 05/03/12 | | by Dr. Tran at [facility]. Last | | Assessment & Plan: Today his device interrogation shows a | | normal and stable function. | + + Encounters +--------+ + + + + | Date | Type | Specialty | Care Team | Description | +--------+ + + + + | 03/27/ | Refill | | Genoveva Mccurdy, | Medication Refill | | 2017 | | | [employer] CREW[employer]BER | | +--------+ + + + + [...] | + + + + | INFLUENZA, [id number], | 08/02/2009 | | | UNSPECIFIED | [...] [place] | | | | | | [address] | | | | | | | | +--------+---------+ + + + | 06/22/ | Office | | | | | 2017 | Visit | | | | +--------+---------+ + + + | 09/15/ | Office | | Carlos Sugsg, | | | 2018 | Visit | | MD Padma [address] | | | | | | [place] | | | | | | [address] | | | | | | | [...] by Marycarmen Tran MD | | | Stadius. | | | #ADDR0 | | (Quantity [...] | | | ENRRIQUE | | | [id number] | | | [id number] | | | This | | | [...] | | | St. | | | [place] | | | y | | | [...] | | | ext. | | | [address] | | | or go | | [...] + + + + + | Specific [place] | 1.008 | 1.001 - 1.030 | [...] ST. | | | Indicated | | [facility] | | | | | CENTER - [...] [address] | [place] | [phone] | | [facility] | | [address] | | | - LABORATORY | | | | + + + + + | [facility] | [address] | [place], [place] | | | [facility] | | [address] | | | - LABORATORY | | [...] [facility] | | | | | [facility] | | | | | CENTER [...] + | [facility] | [address] | [place] | [phone] | | [facility] | | [address] | | | - LABORATORY | | | | + + + + + | [facility] | [address] | [place] | | | [facility] | | [address] | | | - LABORATORY | | | | + + + + + Extra Lavender Top Tube (03/06/2018 1014) + +-------+ + + | Component | Value | Ref Range | Performed At | + +-------+ + + | Extra Lavender Top | Done | | [facility] | | Tube | | | [facility] | | | | | CENTER - | | | | | LABORATORY | + +-------+ + + + + | Specimen | + + | Blood | + + + + + + + | Performing | Address | City/State/Zipcode | Phone Number | | Organization | | | | + + + + + | [facility] | [address] | [place] | [phone] | | [facility] | | [address] | | | - LABORATORY | | | | + + + + + | [facility] | [address] | [place], [place] | | | [facility] | | [address] | | | - LABORATORY | | | | + + + + + Extra Green Top Tube (03/06/2018 1014) + +-------+ + + | Component | Value | Ref Range | Performed At | + +-------+ + + | Extra Green Top Tube | Done | | [facility] | | | | | [facility] | | | | | CENTER - [...] [address] | [place] | [phone] | | [facility] | | [address] | | | - LABORATORY | | | | + + + + + | [facility] | [address] | [place] | | | [facility] | | [address] | | | - LABORATORY | | | | + + + + + Extra Gold Top Tube (03/06/2018 1014) + +-------+ + + | Component | Value | Ref Range | Performed At | + +-------+ + + | EGDT | Done | | [facility] | | | | | [facility] | | | | | CENTER - | | | | | LABORATORY | + +-------+ + + + + | Specimen | + + | Blood | + + + + + + + | Performing | Address | City/State/Zipcode | Phone Number | | Organization | | | | + + + + + | [facility] | [address] | [place] | [phone] | | [facility] | | [address] | | | - LABORATORY | | | | + + + + + | [facility] | [address] | [place] | | | [facility] | | [address] | | | - LABORATORY | | [...] + | [facility] | [address] | [place], [place] | [phone] | | [facility] | | [address] | | | - LABORATORY | | | | + + + + + | [facility] | [address] | [place], [place] | | | [facility] | | [address] | | | - LABORATORY | | [...] >=60 mL/min/1.73m2 | [facility] | | [facility] | GLOMERULAR FILTRATION | | [facility] | | | RATE,ESTIMATED mL/min | | CENTER - | | | /1.24e4Jomp than 60 | | LABORATORY | | [...] [facility] | | | | | [facility] | | | | | CENTER - | | | | | LABORATORY | + + + + + | BUN/CREA | 12.5 | | [facility] | | | | | [facility] | | | | | CENTER - | | | | | LABORATORY | + + + + + + + | Specimen | + + | Blood | + + + + + + + | Performing | Address | City/State/Zipcode | Phone Number | | Organization | | | | + + + + + | [facility] | [address] | [place], [place] | [phone] | | [facility] | | [address] | | | - LABORATORY | | | | + + + + + | [facility] | [address] | [place] | | | [facility] | | [address] | | | - LABORATORY | | [...] +--------+ +---------+ | MEDICARE | MEDICA | [id number] | Medica | [phone] | | | | RE | | re | [phone] | | | | PART A | | | | | | | AND B | | | | | + +--------+ +--------+ +---------+ | [employer] | TRANSA | [id number] | Indemn | | | | INSURANCE [...] | Self | [birth year] | Home: | [address] | | | al/Fam | | 1940 | [phone] | [place] [address] | | | sushil | | | 1940 | | + +--------+ +--------+ + +
--- OUTSIDE RECORDS SUMMARY | ~2018-04-28 | XMS | Encounter Summary ---
Demographics + + + | Address | [address] | | | [place] [address] | + + + | Home Phone | | + + + | Preferred Language | Unknown | + + + | Marital Status | | + + + | Samaritan Affiliation | Unknown | + + + | Race | Unknown | + + + | Ethnic Group | Unknown | + + + Author + + + | Author | [facility] | | | and [place] | + + + | Organization | [facility] | | | and [place] | + + + | Address | Unknown | + + + | Phone | Unavailable | + + + Support + + + + + | Name | Relationship | Address | Phone | + + + + + | Roz Sierra | ECON | [address] | | | | | [place] | | | | | [address] | | + + + + + Care Team Providers + +------+ + | Care Stoner Out Name | Role | Phone | + [...] Pain | | 2018 | | [facility] | [address] | | | | | [address] | [place] | | | | | [place] | [address] | | | | | [address] | | | | | | [phone] | | | +--------+ + + + [...] [place] | | | | | | [address] | | | | | | | [...] [place] | | | | | | [id number] | | | | | | | | +--------+---------+ + + + as of this encounter Visit Diagnoses Not on filein this encounter"
--- OUTSIDE RECORDS SUMMARY | ~2018-04-28 | XMS | Encounter Summary ---
Demographics + + + | Address | [address] | | | [place] [address] | + + + | Home Phone | | + + + | Preferred Language | Unknown | + + + | Marital Status | | + + + | Religion Affiliation | Unknown | + + + | Race | Unknown | + + + | Ethnic Group | Unknown | + + + Author + + + | Author | [facility] | + + + | Organization | [facility] | + + + | Address | Unknown | + + + | Phone | Unavailable | + + + Support + + + + + | Name | Relationship | Address | Phone | + + + + + | Eleanor Sierra | ECON | [address] | | | | | [place] | | | | | [address] | | + + + + + Care Team Providers + +------+ + | Care Building Services Coordinator Name | Role | Phone | [...] [place]. 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, | | | | Emergency Department | [place] [address] | unspecified spinal | | | | [address] | [phone] | osteoarthritis | | | | [place] [address] | | complication status | | | | [phone] | | (Primary Dx) | +--------+ + [...] be sent through Care Everywhere.Degenerative Disk Disease (Hebrew)in this encounter Medications at Time of Discharge [...] | | | | | 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 ([facility]) | | | | | [...] | COLOR UA | YELLOW | | Medopad | + + + + + | CLARITY | CLEAR | | pushd LABORATORY | + + + + + | Specific [place], UA | 1.020 | 1.002 - 1.030 [...] | NEGATIVEComment: Testing | NEGATIVE mg/dL | [facility] | | | performed at [facility];[address] | | | | | [address] [place] | | | | | [address] | | | + + + + + + + | Specimen | + + | Urine - Urine, Clean | | Catch | + + + + + + + | Performing | Address | City/State/Zipcode | Phone Number | | Organization | | | | + + + + + | [facility] | [address] | [place] [address] | | + + + + + ED INFORMATION EXCHANGE (03/12/2018 2:34 PM) + + + | Narrative | Performed At | + + + | [id number] [id number] This patient has registered at the | ED | | [facility] Emergency Department For more | INFORMATION | | information visit: | EXCHANGE | | [email or web address] | | | [email or web address] Security Events No recent Security Events currently [...] [facility] | | [facility] [place] [place] [facility] | | | [facility] [place] | | | Emergency Emergency back pain Strain of muscle, | | | fascia and tendon of lower back, initial encounter E.D. | | | Visit Count (12 mo.) Facility Visits Low Acuity [facility] | | | [facility] 2 0 [facility] [address] [facility]. | | | [facility] 3 0 Total 7 0 Note: Visits indicate total known | | | visits. Medicaid Low Acuity Dx are the number of primary diagnoses on | | | the Medicaid's Low Acuity dx list. Recent Inpatient Visit | | | Summary No recorded inpatient visits. PDMP Report PDMP query | | | found no report. [!] Patient is on [facility] Provider [facility] | | | Type Phone Service Dates DR CARLOS SUGGS MD Lock In (121) | | | [phone] Current If this client is seen in your | | | facility, please notify the client's PCP and/or refer the client back | | | to their PCP for appropriate follow-up and management of care. If you | | | have any questions or concerns about the client or the [facility] program, | | | please feel free to contact us at ext. [phone] or go to | | | the [facility] website at [email or web address] for more information. | | | Additional Care Providers Provider [facility] Type Phone Fax Service | | | Dates SHANNAN STOUT MD Internal Medicine: Pulmonary Disease | | | Current CARLOS SUGGS MD Family Medicine | | | Current Known Aliases No known aliases. | | | Criteria met [facility] The above information is provided for the | | | sole purpose of patient treatment. Use of this information beyond the | | | terms of Data Sharing Memorandum of Understanding and License | | | Agreement is prohibited. In certain cases not all visits may be | | | represented. Consult the aforementioned facilities for additional | | | information. 2018 [facility] | | | [place], [place] - [email or web address] | | + + + + + | Procedure Note | + + | Interface, Lab - 03/12/2018 2:36 PM PDT Formatting of this note may be different | | from the original.[id number] [id number] patient has registered at the [facility] | | [facility] Emergency Department For more information visit: | | [email or web address] Security | | EventsNo recent Security Events currently on fileED Care GuidelinesThere are currently | | no ED Care Guidelines in MIHIR for this patient. Please check your facility's medical | | records system.Recent Emergency Department Visit SummaryAdmit Date Facility [facility] State | | Type Major Type Diagnoses or Chief Complaint Mar 12, 2018 [facility] [place]. [place] | | Emergency Emergency Back [facility] [place] [place] | | Emergency Emergency back pain Strain of muscle, fascia and tendon of lower back, | | initial encounter E.D. Visit Count (12 mo.)Facility Visits Low Acuity [facility] | | [facility] 2 0 [facility] 2 0 [facility] 3 0 | | Total 7 0 Note: Visits indicate total known visits. Medicaid Low Acuity Dx are the | | number of primary diagnoses on the Medicaid's Low Acuity dx list. Recent Inpatient | | Visit SummaryNo recorded inpatient visits. PDMP ReportPDMP query found no report.[!] | | Patient is on [place] [facility] Type Phone Service Dates DR CARLOS SUGGS MD | | Lock In Current If this client is seen in your facility, | | please notify the client's PCP and/or refer the client back to their PCP for | | appropriate follow-up and management of care. If you have any questions or concerns | | about the client or the [facility] program, please feel free to contact us at | | ext. [phone] or go to the [facility] website at [email or web address] for more | | information. Additional Care ProvidersProvider [facility] Type Phone Fax Service Dates | | [...] facilities for additional information. 2018 | | [employer] [place], [place] - | | [email or web address] | |No recorded inpatient visits. | | | |PDMP Report | |PDMP query found no report. | | | |[!] Patient is on [facility] | |Provider [facility] Type Phone Service Dates | |DR CARLOS SUGGS MD [facility] In Current | |If this client is seen in your facility, please notify the client's PCP and/or refer the cl ient back to their PCP for appropriate follow-up and management of care. If you have any que stions or concerns about the client | |or the [facility] program, please feel free to contact us at ext. [phone] or go to [facility] website at [email or web address] for more information. | | | |Additional Care Providers | |Provider [facility] Type Phone Fax Service Dates | |SHANNAN [...] aforementioned facilities for additional information. | |2018 [employer] - [place], [place] - | + + + +---------+ + [...]
--- OUTSIDE RECORDS SUMMARY | ~2018-04-28 | XMS | Encounter Summary ---
Demographics + + + | Address | [address] | | | [place] [address] | + + + | Home Phone | | + + + | Preferred Language | Unknown | + + + | Marital Status | | + + + | Nondenominational Affiliation | Unknown | + + + | Race | Unknown | + + + | Ethnic Group | Unknown | + + + Author + + + | Author | [facility] | | | and [place] | + + + | Organization | [facility] | | | and [place] | + + + | Address | Unknown | + + + | Phone | Unavailable | + + + Support + + + + + | Name | Relationship | Address | Phone | + + + + + | Roz Sierra | ECON | [address] | | | | | [place] | | | | | [address] | | + + + + + Care Team Providers + +------+ + | Care Fence Erector Name | Role | Phone | + [...] Description | +--------+--------+ + + + | 03/03/ | Refill | [facility] | Carlos Suggs, | Medication Refill | | 2017 | | [facility] [place] | [address] | | | | | [address] | [place] | | | | | [place] | [address] | | | | | [address] | | | | | | [phone] | | | +--------+--------+ + + + [...] [place] | | | | | | [id number] | | | | | | | | +--------+---------+ + + + as of this encounter Visit Diagnoses Not on filein this encounter"
--- OUTSIDE RECORDS SUMMARY | ~2018-04-28 | XMS | Encounter Summary ---
Demographics + + + | Address | [address] | | | [place] [address] | + + + | Home Phone | | + + + | Preferred Language | Unknown | + + + | Marital Status | | + + + | Confucianism Affiliation | Unknown | + + + | Race | Unknown | + + + | Ethnic Group | Unknown | + + + Author + + + | Author | [facility] | | | and [place] | + + + | Organization | [facility] | | | and [place] | + + + | Address | Unknown | + + + | Phone | Unavailable | + + + Support + + + + + | Name | Relationship | Address | Phone | + + + + + | Roz Sierra | ECON | [address] | | | | | [place] | | | | | [address] | | + + + + + Care Team Providers + +------+ + | Care Subscription Clerk Name | Role | Phone | + +------+ + | Carlos Suggs MD | PCP | | + +------+ + Reason for Visit + + + | Reason | Comments | + + + | Back Pain | lower back | + + + Encounter Details +--------+---------+ + + + | Date | Type | Department | Care Team | Description | +--------+---------+ + + + | 03/15/ | Office | [facility] | Carlos Suggs Jack, | Acute right-sided | | 2018 | Visit | [facility] [place] | [address] | low back pain | | | | [address] | [place], [place] | without sciatica | | | | [place], [place] | [address] | (Primary Dx) | | | | [address] | | | | | | [phone] | | | +--------+---------+ + + + Social History + + [...] + | Blood Pressure | 112/62 | 03/15/20188 PDT | + + + + | [...] | 104.3 kg (229 lb 15 | 03/15/20181539 PDT | | | oz) | | + + + + | Height | - | - | + + + + | Body Mass Index | 32.07 | 03/15/20180 PDT | + + + + in [...] + + + as of this encounter Progress Notes Carlos Suggs MD - 03/15/2018 1530 PDTFormatting of this note may be different from shawanda pillai. Subjective: Patient ID: Enrrique Sierra is a 77 y.o. male. Chief Complaint Patient presents with Back Pain lower back Back Pain This is a recurrent problem. The current episode started more than 1 year ago. The problem occurs constantly. The problem has been resolved since onset. The pain is present in the lum bar spine. The pain is at a severity of 4/10. The pain is moderate. 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 CKD (chronic kidney disease) Congestive heart failure with preserved LV function ([facility]) 12/04/2014 COPD (chronic obstructive pulmonary disease) ([facility]) FEV1 65% 09/2012, significant bronchodilator response Coronary artery disease 1989 s/p 4V CABG, s/p stents Cutaneous abscess of neck post operatively carotid endartrectomy GERD (gastroesophageal reflux disease) Hearing loss Hematuria 06/14/2011 Hyperlipidemia Hypertension Obesity Ulcer Family History Problem Relation Age of Onset Heart failure Mother Cancer Brother unknown type Heart disease Brother Heart disease Sister Prostate cancer Neg Hx No family history of prostate cancer Social History Social History Marital status: Spouse name: Roz Number of children: 4 Years of education: N/A 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[employer] Social History Main Topics Smoking status: Former Smoker Packs/day: 0.80 Years: 30.00 Types: Cigarettes Quit date: 09/08/1989 Smokeless tobacco: Never Used Alcohol use No Drug use: No Sexual activity: Yes Partners: Female Other Topics Concern None Social History Narrative Children: 1 living ,3 ,cancer ,cystic fibrosis, SIDS Caffeine: 1 Can pepsi only once in a while Exercise: Active Living situation: Lives with spouse Roz in own home in [place] Grew up: [place] Has previously lived in: [place], [place] 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 HENT: Negative. Eyes: Negative. Respiratory: Negative. Cardiovascular: Negative. Gastrointestinal: Negative. Genitourinary: Negative. Musculoskeletal: Positive for back pain. Skin: Negative. Neurological: Negative. Endo/Heme/Allergies: Negative. Psychiatric/Behavioral: Negative. . Objective: BP 112/62 | Pulse 68 | Temp 37.1 C (98.8 F) (Temporal) | Resp 18 | Wt 104.3 kg (229 lb 15 oz) | SpO2 91% Comment: Room Air | BMI 32.07 kg/m Physical Exam Constitutional: He is well-developed, well-nourished, and in no distress. HENT: Head: Normocephalic and atraumatic. Eyes: Right eye exhibits no discharge. Left eye exhibits no discharge. Neck: No tracheal deviation present. Cardiovascular: Regular rhythm. Pulmonary/Chest: Effort normal. No respiratory distress. Abdominal: He exhibits no distension. Musculoskeletal: He exhibits no edema. Neurological: He is alert. Skin: Skin is dry. He is not diaphoretic. Psychiatric: Affect normal. Assessment/Plan: Low back pain Physical therapy ordered in this encounter Plan of Treatment +--------+---------+ + + + | Date | Type | Specialty | Care Team | Description | +--------+---------+ + + + | 06/01/ | Office | Cardiology | Genoveva Mccurdy, | | | 2017 | Visit | | BULK GAS SPECIALIST [address] | | | | | | St [place], [place] | | | | | | [address] | | | | | | | | +--------+---------+ + + + | 06/22/ | Office | Pulmonology | | | | 2017 | Visit | | | | +--------+---------+ + + + | 09/15/ | Office | Family Medicine | Carlos Suggs, | | | 2018 | Visit | | MD [address] | | | | | | [place] | | | | | | [address] | | | | | | | | +--------+---------+ + + + as of this encounter Visit Diagnoses + + | Diagnosis | + + | Acute right-sided low back pain without sciatica - Primary | + +"
--- OUTSIDE RECORDS SUMMARY | ~2018-04-28 | XMS | Encounter Summary ---
Demographics + + + | Address | [address] | | | [place] [address] | + + + | Home Phone | | + + + | Preferred Language | Unknown | + + + | Marital Status | | + + + | Uatsdin Affiliation | Unknown | + + + | Race | Unknown | + + + | Ethnic Group | Unknown | + + + Author + + + | Author | [facility] | | | and [place] | + + + | Organization | [facility] | | | and [place] | + + + | Address | Unknown | + + + | Phone | Unavailable | + + + Support + + + + + | Name | Relationship | Address | Phone | + + + + + | Roz Sierra | ECON | [address] | | | | | [place] | | | | | [address] | | + + + + + Care Team Providers + +------+ + | Care Group Manager Name | Role | Phone | + [...] | | | | CENTER [address] | [place], [place] | encounter (Primary | | | | [place], [place] | [address] | Dx) | | | | [address] | | | | | | [phone] | | | +--------+ + + + [...] | | | Chronic obstructive | to [facility] | | | | | | pulmonary disease, | | | | | | | unspecified COPD | | | | | | | type ([facility]) | | | | | | + [...] + + + +---------+ + + | Parks-3 Fatty | Take 1,200 mg by | | | | | | Acids (FISH OIL) | mouth 2 times daily. | | | | | | 1200 MG | | | | | | | CAPSIndications: | | | | | | | Coronary artery | | | | | | | disease involving | | | | | | | [place] vieux coronary | | | | | | | artery of [place] vie[place] | | | | | | | [...] | Visit | | JANINE [address] | | | | | | St [place] | | | | | | [address] | | | | | | | [...] [place] | | | | | | [address] | | | | | | | [...] | | | ENRRIQUE | | | [id number] | | | [id number] | | | This | | | [...] | | | St. | | | [place] | | | y | | | [...] | | | ext. | | | [phone] | | | or go | | [...] + + + + + | Specific [place] | 1.008 | 1.001 - 1.030 | [...] ST. | | | Indicated | | [facility] | | | | | [...] [address] | [place] | [phone] | | [facility] | | [address] | | | - LABORATORY | | | | + + + + + | [facility] | [address] | [place] | | | [facility] | | [address] | | | - LABORATORY | | | | + + + + + CT Lumbar Spine wo Contrast (03/06/2018 1052) + + + | Narrative | Performed At | + + + | TECHNIQUE: Noncontrast axial CT imaging was obtained through the | [facility] | | lumbar spine [...] + | [facility] | [address] | [place], [place] | [phone] | | [facility] | | [address] | | | - LABORATORY | | | | + + + + + | [facility] | [address] | [place], [place] | | | [facility] | | [address] | | | - LABORATORY | | [...] + | [facility] | [address] | [place] | [phone] | | [facility] | | [address] | | | - LABORATORY | | | | + + + + + | [facility] | [address] | [place] | | | [facility] | | [address] | | | - LABORATORY | | | | + + + + + Extra Gold Top Tube (03/06/2018 1014) + +-------+ + + | Component | Value | Ref Range | Performed At | + +-------+ + + | EGDT | Done | | [facility] | | | | | [facility] | | | | | [...] + | [facility] | [address] | [place] | [phone] | | [facility] | | [address] | | | - LABORATORY | | | | + + + + + | [facility] | [address] | [place] | | | [facility] | | [address] | | | - LABORATORY | | [...] + | [facility] | [address] | [place] | [phone] | | [facility] | | [address] | | | - LABORATORY | | | | + + + + + | [facility] | [address] | [place], [place] | | | [facility] | | [address] | | | - LABORATORY | | [...] 1.20 | 0.60 - 1.30 mg/dL | [facility] | | Serum/Plasma | | | [facility] | | | | | CENTER - | | | | | LABORATORY | + + + + + | eGFR if not | 59 (L)Comment: | >=60 mL/min/1.73m2 | [facility] | | [facility] | GLOMERULAR FILTRATION | | [facility] | | | RATE,ESTIMATED mL/min | | CENTER - | | | /1.52p1Cqes than 60 | | LABORATORY | | [...] 9.1 | 8.3 - 10.5 mg/dL | [facility] | | | | | [facility] | | | | | CENTER - | | | | | LABORATORY | + + + + + | [employer] | 12.5 | | [facility] | | | | | [facility] | | | | | [...] [address] | [place] | [phone] | | [facility] | | [address] | | | - LABORATORY | | | | + + + + + | [facility] | [address] | [place] | | | [facility] | | [address] | | | - LABORATORY | | | | + + + + + CBC w/ Auto Differential (03/06/2018 1014) + + + + + | Component | Value | Ref Range | Performed At | + + + + + | WBC | 12.5 (H) | 4.0 - 11.0 K/uL | [facility] | | | | | [facility] | | | | | CENTER - | | | | | LABORATORY | + + + + + | RBC | 4.99 | 4.30 - 5.70 M/uL | [facility] | | | | | [facility] | | | | | [...] [facility] | | | | | [facility] | | | | | CENTER [...] [facility] | | | | | [facility] | | | | | [...] + | [facility] | [address] | [place] | [phone] | | [facility] | | [address] | | | - LABORATORY | | | | + + + + + | [facility] | [address] | [place] | | | [facility] | | [address] | | | - LABORATORY | | [...]
--- OUTSIDE RECORDS SUMMARY | ~2018-04-28 | XMS | Encounter Summary ---
Demographics + + + | Address | [address] | | | [place] [address] | + + + | Home Phone | | + + + | Preferred Language | Unknown | + + + | Marital Status | | + + + | Muslim Affiliation | Unknown | + + + | Race | Unknown | + + + | Ethnic Group | Unknown | + + + Author + + + | Author | [facility] | | | and [place] | + + + | Organization | [facility] | | | and [place] | + + + | Address | Unknown | + + + | Phone | Unavailable | + + + Support + + + + + | Name | Relationship | Address | Phone | + + + + + | Roz Sierra | ECON | [address] | | | | | [place] | | | | | [address] | | + + + + + Care Team Providers + +------+ + | Care Supervisor Taping Name | Role | Phone | + [...] Description | +--------+--------+ + + + | 03/27/ | Refill | [facility] [place] | Genoveva Mccurdy, | Medication Refill | | 2018 | | CARDIOLOGY [address] | ACRYLIC FABRICATOR [address] | | | | | [place], | [place], [place] | | | | | [place] [address] | [address] | | | | | [phone] | | | +--------+--------+ + + + [...] [place] | | | | | | [id number] | | | | | | | [...] [place] | | | | | | [address] | | | | | | | | +--------+---------+ + + + as of this encounter Visit Diagnoses Not on filein this encounter"
--- OUTSIDE RECORDS SUMMARY | ~2018-04-28 | XMS | Encounter Summary ---
Demographics + + + | Address | [address] | | | [place] [address] | + + + | Home Phone | | + + + | Preferred Language | Unknown | + + + | Marital Status | | + + + | Synagogue Affiliation | Unknown | + + + | Race | Unknown | + + + | Ethnic Group | Unknown | + + + Author + + + | Author | [facility] | | | and [place] | + + + | Organization | [facility] | | | and [place] | + + + | Address | Unknown | + + + | Phone | Unavailable | + + + Support + + + + + | Name | Relationship | Address | Phone | + + + + + | Roz Sierra | ECON | [address] | | | | | [place] | | | | | [address] | | + + + + + Care Team Providers + +------+ + | Care Agitator Operator Name | Role | Phone | [...] + + | 03/15/ | Office | [facility] | Carlos Suggs Jack, | Acute right-sided | | 2018 | Visit | [facility] [place] | [address] | low back pain | | | | [address] | [place], [place] | without sciatica | | | | [place], [place] | [address] | (Primary Dx) | | | | [address] | | | | | | [phone] | | | +--------+---------+ + + + [...] Date Acid reflux disease Acute kidney injury ([facility]) 03/2013 secondary to gastroenteritis MASSIMO (acute kidney injury) ([facility]) 05/2014 secondary to gastroenteritis Bilateral carotid artery stenosis s/p bilateral carotid endartrectomy 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/2011 CKD (chronic kidney disease) Congestive heart failure with preserved LV function ([facility]) 12/04/2014 COPD (chronic obstructive pulmonary disease) ([facility]) FEV1 65% 09/2012, significant bronchodilator response Coronary [...] Years of education: N/A 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[employer] Social History Main Topics Smoking status: Former [...] with spouse Roz in own home in [place] Grew up: [place] Has previously lived in: [place], [place] Exposure to toxic chemicals: at the mill, [...] | | 2017 | Visit | | FAMILY COURT COUNSELLOR [address] | | | | | | St [place], [place] | | | | | | [address] | | | | | | | | +--------+---------+ + + + | 06/22/ | Office | Pulmonology | | | | 2017 | Visit | | | | +--------+---------+ + + + | 09/15/ | Office | Family Medicine | Carlos Suggs, | | | 2018 | Visit | | MD Padma [address] | | | | | | [place] | | | | | | [address] | | | | | | | | +--------+---------+ + + + as of this encounter Visit Diagnoses + + | Diagnosis | + + | Acute right-sided low back pain without sciatica - Primary | + +"
--- OUTSIDE RECORDS SUMMARY | ~2018-04-28 | XMS | Clinical Summary ---
Demographics + + + | Address | [address] | | | [place] [address] | + + + | Home Phone | | + + + | Preferred Language | Unknown | + + + | Marital Status | | + + + | Baptism Affiliation | Unknown | + + + | Race | Unknown | + + + | Ethnic Group | Unknown | + + + Author + + + | Author | [facility] | + + + | Organization | [facility] | + + + | Address | Unknown | + + + | Phone | Unavailable | + + + Support + + + + + | Name | Relationship | Address | Phone | + + + + + | Eleanor Marie | ECON | [address] | | | | | [place] | | | | | [address] | | + + + + + Care Team Providers + +------+ + | Care Correctional Agency Director Name | Role | Phone | + [...] | | | | | graft of [place] | | | | | | | [...] | COLOR UA | YELLOW | | Project Rep[facility] LABORATORY | + + + + + | CLARITY | CLEAR | | Project Repat LABORATORY | + + + + + | Specific [place], UA | 1.020 | 1.002 - 1.030 | Project Rep[facility] LABORATORY | + + + + + [...] | NEGATIVEComment: Testing | NEGATIVE mg/dL | [facility] | | | performed at [facility] [place] | | | | | [address];[place] | | | | | [address] | | | + + + + + + + | Specimen | + + | Urine - Urine, Clean | | Catch | + + + + + + + | Performing | Address | City/State/Zipcode | Phone Number | | Organization | | | | + + + + + | [facility] | [address] | [place] [facility] [address] | | + + + + + ED INFORMATION EXCHANGE (03/12/2018 2:34 PM) + + + | Narrative | Performed At | + + + | [id number] This patient has registered at the | ED | | [facility] Emergency Department For more | INFORMATION | | information visit: | EXCHANGE | | [email or web address] | | | [email or web address] Security Events No recent Security Events currently on file | | | ED Care Guidelines There are currently no ED Care Guidelines in | | | MIHIR for this patient. Please check your facility's medical records | | | system. Recent Emergency Department Visit Summary Admit Date | | | Facility [facility] State Type Major Type Diagnoses or Chief Complaint Feb | | | 2017 [facility]. [place] Emergency Emergency | | | Back Pain Mar 06, 2018 [facility]. [place] | | | Emergency Emergency back pain Strain of muscle, | | | fascia and tendon of lower back, initial encounter E.D. | | | Visit Count (12 mo.) Facility Visits [facility] | | | [facility] 2 0 [facility] 2 0 [facility] | | | [facility] 3 0 Total 7 0 Note: Visits indicate total known | | | visits. Medicaid Low Acuity Dx are the number of primary diagnoses on | | | the Medicaid's Low Acuity dx list. Recent Inpatient Visit | | | Summary No recorded inpatient visits. PDMP Report PDMP query | | | found no report. [!] Patient is on [facility] Provider [facility] | | | Type Phone Service Dates DR CARLOS SUGGS MD Lock In ([phone]) | | | [phone] Current If this client is seen in your | | | facility, please notify the client's PCP and/or refer the client back | | | to their PCP for appropriate follow-up and management of care. If you | | | have any questions or concerns about the client or the [facility] program, | | | please feel free to contact us at ext. [phone] or go to | | | the [facility] website at [email or web address] for more information. | | | Additional Care Providers Provider [facility] Type Phone Fax Service | | | Dates SHANNAN STOUT MD Internal Medicine: Pulmonary Disease | | | Current CARLOS SUGGS MD Family Medicine | | | Current Known Aliases No known aliases. | | | Criteria met [facility] The above information is provided for the | | | sole purpose of patient treatment. Use of this information beyond the | | | terms of Data Sharing Memorandum of Understanding and License | | | Agreement is prohibited. In certain cases not all visits may be | | | represented. Consult the aforementioned facilities for additional | | | information. 2018 [employer] - [facility] | | | [place], [place] - [email or web address] | | + + + + + | Procedure Note | + + | Interface, Lab - 03/12/2018 2:36 PM PDT Formatting of this note may be different | | from the original.[id number] [id number] patient has registered at the [facility] | | [facility] Emergency Department For more information visit: | | [email or web address] Security | | EventsNo recent Security Events currently on fileED Care GuidelinesThere are currently | | no ED Care Guidelines in MIHIR for this patient. Please check your facility's medical | | records system.Recent Emergency Department Visit SummaryAdmit Date Facility [facility] State | | Type Major Type Diagnoses or Chief Complaint [facility] [place] [facility] | [facility] [place] [place] [facility] | Emergency Emergency back pain Strain of muscle, fascia and tendon of lower back, | | initial encounter E.D. Visit Count (12 mo.)Facility Visits [facility] | | [facility] 2 0 [facility] 2 0 [facility] 3 0 | | Total 7 0 Note: Visits indicate total known visits. Medicaid Low Acuity Dx are the | | number of primary diagnoses on the Medicaid's Low Acuity dx list. Recent Inpatient | | Visit SummaryNo recorded inpatient visits. PDMP ReportPDMP query found no report.[!] | | Patient is on [place] PRCProvider [facility] Type Phone Service Dates DR CARLOS SUGGS MD | | Lock In Current If this client is seen in your facility, | | please notify the client's PCP and/or refer the client back to their PCP for | | appropriate follow-up and management of care. If you have any questions or concerns | | about the client or the [facility] program, please feel free to contact us at | | ext. [phone] or go to the [facility] website at [email or web address] for more | | information. Additional Care [...] facilities for additional information. 2018 | | [employer] [place], [place] - | | [email or web address] | |No recorded inpatient visits. | | | |PDMP Report | |PDMP query found no report. | | | |[!] Patient is on [place] [facility] | |Provider PRC Type Phone Service [...] feel free to contact us at ext. [phone] or go to [facility] PR[facility] website at [email or web address] for more information. | | | |Additional [...] aforementioned facilities for additional information. | |2018 [employer] - [place], [place] - | + + + +---------+ + [...] +------+-------+ + | MEDICARE | MEDICA | [id number] | | | [address] | | | RE | | | | [place] [address] | | | IP-OP | | | | | + +--------+ +------+-------+ + | COMMERCIAL OTHER | TRANSA | [id number] | | | | | | MERICA [...] | Self | [birth year] | Home: | [address] | | | al/Fam | | 1939 | [phone] | [place] | | | sushil | | | 1939 | [address] | + +--------+ +--------+ + +
--- OUTSIDE RECORDS SUMMARY | ~2018-04-28 | XMS | Encounter Summary ---
Demographics + + + | Address | [address] | | | [place] [address] | + + + | Home Phone | | + + + | Preferred Language | Unknown | + + + | Marital Status | | + + + | Rastafarian Affiliation | Unknown | + + + | Race | Unknown | + + + | Ethnic Group | Unknown | + + + Author + + + | Author | [facility] | | | and [place] | + + + | Organization | [facility] | | | and [place] | + + + | Address | Unknown | + + + | Phone | Unavailable | + + + Support + + + + + | Name | Relationship | Address | Phone | + + + + + | Roz Sierra | ECON | [address] | | | | | [place] | | | | | [address] | | + + + + + Care Team Providers + +------+ + | Care Environmental Marketing Representative Name | Role | Phone | + [...] 2018 | | CARDIOLOGY [address] | RELAY DISPATCHER [address] | | | | | [place], | St [place], [place] | | | | | [place] [address] | [address] | | | | | [phone] | | | +--------+--------+ + + + [...] [place] | | | | | | [id number] | | | | | | | [...] [place] | | | | | | [address] | | | | | | | | +--------+---------+ + + + as of this encounter Visit Diagnoses Not on filein this encounter"
--- OUTSIDE RECORDS SUMMARY | ~2018-04-28 | XMS | Encounter Summary ---
Demographics + + + | Address | [address] | | | [place] [address] | + + + | Home Phone | | + + + | Preferred Language | Unknown | + + + | Marital Status | | + + + | Bahai Affiliation | Unknown | + + + | Race | Unknown | + + + | Ethnic Group | Unknown | + + + Author + + + | Author | [facility] | | | and [place] | + + + | Organization | [facility] | | | and [place] | + + + | Address | Unknown | + + + | Phone | Unavailable | + + + Support + + + + + | Name | Relationship | Address | Phone | + + + + + | Roz Sierra | ECON | [address] | | | | | [place] | | | | | [address] | | + + + + + Care Team Providers + +------+ + | Care Project Geologist Name | Role | Phone | + [...] Refill | | 2017 | | [facility] [place] | [address] | | | | | [address] | [place] | | | | | [place] | [address] | | | | | [address] | | | | | | [phone] | | | +--------+--------+ + + + [...] DEE | | | | | | [id number] | | | | | | | | +--------+---------+ + + + as of this encounter Visit Diagnoses Not on filein this encounter"
--- OUTSIDE RECORDS SUMMARY | ~2018-04-28 | XMS | Encounter Summary ---
Demographics + + + | Address | [address] | | | [place] [address] | + + + | Home Phone | | + + + | Preferred Language | Unknown | + + + | Marital Status | | + + + | Advent Affiliation | Unknown | + + + | Race | Unknown | + + + | Ethnic Group | Unknown | + + + Author + + + | Author | [facility] | | | and [place] | + + + | Organization | [facility] | | | and [place] | + + + | Address | Unknown | + + + | Phone | Unavailable | + + + Support + + + + + | Name | Relationship | Address | Phone | + + + + + | Roz Sierra | ECON | [address] | | | | | [place] | | | | | [address] | | + + + + + Care Team Providers + +------+ + | Care Medical Center Representative Name | Role | Phone | [...] Refill | | 2017 | | [facility] [place] | [address] | | | | | [address] | [place] | | | | | [place] | [address] | | | | | [address] | | | | | | [phone] | | | +--------+--------+ + + + [...] DEE | | | | | | [phone] | | | | | | | | +--------+---------+ + + + as of this encounter Visit Diagnoses Not on filein this encounter"
[~2018-04-28 23:21] MED LIST changes: +CEFPODOXIME PR200 MG PO; +MAG-OXIDE400 MG PO; +METOPROLOL SUC100 MG PO; +WARFARIN SODIUM5 MG PO
--- OUTSIDE RECORDS SUMMARY | 2018-04-28 23:26 | XMS ---
PreManage Notification: MARI MARIE Security Nursing Aide Events No recent Security Events currently on file CRITERIA MET - [place] [address] Facilities in 90 Days CARE PROVIDERS SHANNAN STOUT Internal Medicine: Pulmonary Disease Current PHONE: Unknown CARLOS DIAZ [facility] Current PHONE: [phone] DR CARLOS DIAZ Primary Care Current PHONE: [phone] Amber has no Care Guidelines for this patient. ERobert VISIT COUNT (12 MO.) [facility] [address] [place], [place] [address]Nancy 3 ROBERT Weiss TOTAL 6 NOTE: Visits indicate total known visits. ED/UCC VISIT TRACKING (12 MO.) 04/28/2018 23:21 [facility] [place] TYPE: Emergency COMPLAINT: - CARDIAC ARREST 03/12/2018 14:32 [facility] DIAGNOSES: - Spondylosis without myelopathy or radiculopathy, lumbar region - Back Pain 03/06/2018 09:46 [facility] DIAGNOSES: - back pain - Strain of muscle, fascia and tendon of lower back, [facility] COMPLAINT: - SOB 05/11/2017 10:10 [facility] DIAGNOSES: - Acute and chronic respiratory failure with hypoxia - Pneumonia, unspecified organism - Atherosclerotic heart disease of [place] coronary artery without angina pectoris - Acute kidney failure, unspecified - Chronic kidney disease, stage 3 (moderate) - Sepsis, unspecified organism - Chronic obstructive pulmonary disease, unspecified - Acute respiratory failure with hypoxia - Chest pain, unspecified 05/11/2017 05:49 [facility] TYPE: Emergency COMPLAINT: - SOB DIAGNOSES: - Essential (primary) hypertension - director long term care (current) use of aspirin - Presence of coronary angioplasty implant and graft - Presence of cardiac pacemaker - Chronic obstructive pulmonary disease with acute lower respiratory infection - Pneumonia, unspecified organism - Other intermodal customer service (current) drug therapy - Personal history of nicotine dependence - director long term care (current) use of systemic steroids - Gastro-esophageal reflux disease without esophagitis - Heart disease, unspecified - Shortness of breath INPATIENT VISIT TRACKING (12 MO.) 05/11/2017 10:10 [facility] TYPE: General Medicine DIAGNOSES: - Chronic kidney disease, stage 3 (moderate) - Pneumonia, unspecified organism - Chest pain, unspecified - Atherosclerotic heart disease of [place] coronary artery without angina pectoris - Acute and chronic respiratory failure with hypoxia - Chronic diastolic (congestive) heart failure - Acute respiratory failure with hypoxia - Acute kidney failure, unspecified - Atherosclerosis of coronary artery bypass graft(s), unspecified, with unspecified angina pectoris - Chronic obstructive pulmonary disease, unspecified - Sepsis, unspecified organism [email or web address]
--- NOTE | 2018-04-29 01:15 | NUR ---
PT HAD WHEN I ARRIVED. FAMILY HAD ALREADY LEFT. AFTER APPROVAL FROM [place] AND [facility]OR LINE BODY WAS RELEASED TO [facility]. PT HAD SHOES, CUT CLOTHING, PARACORD BRACELET, DENTURES, AND A CELL PHONE IN HIS POSSESSION. ALL ITEMS WERE SENT C WITH THE PTS BODY TO [facility].
== END 2018-04-29 01:15 ==
LOC: ED 23:21
DX: I46.9 Cardiac arrest, cause unspecified (principal); I10 Essential (primary) hypertension; K21.9 Gastro-esophageal reflux disease without esophagitis; Z87.891 Personal history of nicotine dependence; Z79.01 Long term (current) use of anticoagulants; Z79.899 Other long term (current) drug therapy
CPT/HCPCS: 92950; 99285